=== PATIENT | male | born 1945 | race Caucasian/White ===

== ENCOUNTER → 2018-11-21 10:34 | Outpatient (CLI) | payer MEDICARE, OTHER, SELFPAY ==
[2018-11-21 11:49] LABS: Add Manual Diff / Slide Review NO; Basophils Absolute Auto 0 /uL (0-100); Basophils Percent Auto 0.4 % (0-2); Eosinophils Absolute Auto 100 /uL (0-450); Eosinophils Percent Auto 2.9 % (2-4); Hematocrit 46.2 % (41-53); Hemoglobin 15.4 g/dL (13.5-17.5); Lymphocytes Absolute Auto 900 /uL (1100-4500); Lymphocytes Percent Auto 17.3 % (25-40); Mean Corpuscular HGB Conc 33.4 % (30-36); Mean Corpuscular Hemoglobin 33.7 PG (26-34); Monocytes Absolute Auto 700 /uL (0-900); Neutrophils Absolute Auto 3400 /uL (1500-7000); Neutrophils Percent Auto 66.4 % (50-75); Platelet Count 166 X10^3/uL (150-400); Red Blood Cell Count 4.57 X10^6/uL (4.5-5.9); Red Cell Distribution Width 14.3 % (11.6-14.8); White Blood Cell Count 5.1 X10^3/uL (4.5-11.0)
[2018-11-21 12:32] LABS: Alanine Aminotransferase 42 IU/L (21-72); Albumin 4.5 g/dL (3.5-5.0); Albumin Globulin Ratio 1.5 (1.0-2.8); Alkaline Phosphatase 71 U/L (38-126); Aspartate Aminotransferase 43 IU/L (17-59); Bilirubin Total 0.8 mg/dL (0.2-1.3); Blood Urea Nitrogen 14 mg/dL (9-20); Calcium 9.2 mg/dL (8.4-10.2); Carbon Dioxide 31 mmol/L (22-32); Chloride 98 mmol/L (98-107); Estimated Glomerular Filt Rate > 60.0 mL/min (>60); Glucose 99 mg/dL (80-110); HEMOLYSIS < 15 (0-50); Potassium 4.4 mmol/L (3.4-5.1); Sodium 139 mmol/L (137-145); Total Protein 7.5 g/dL (6.3-8.2)
[2018-11-21 14:27] LABS: B Type Natriuretic Peptide < 100 (<100)
== END ==
PROVIDERS: Family Provider Family Medicine; PCP Family Medicine; Visit Provider Family Medicine
DX: R60.9 Edema, unspecified (principal); I48.91 Unspecified atrial fibrillation; R06.02 Shortness of breath; J44.9 Chronic obstructive pulmonary disease, unspecified
CPT/HCPCS: 36415; 80053; 83880; 85025

== ENCOUNTER → 2018-11-23 08:05 | Outpatient (CLI) | payer MEDICARE, OTHER, SELFPAY ==
--- NOTE | 2018-11-23 | DI.ECHO.S_ITS ---
[facility] +---------+ : : [address] [place] [address] : : : : [id number] : : : : Phone: [phone]+ Echocardiogram Report + + :Name: CATRACHITO PERAZA Study Date: 11/23/2018 Height: 71 in : :[facility] Exam Location: [place] Weight: 213 lb : : Gender: Male BSA: 2.2 m2 : :: 1945 Age: 73 yrs BP: 140/80 mmHg: :Reason For Study: Atrial fibrillation/ Edema : :Ordering Physician: Dr. Kate : :[place] Performed By: Milagros Page : + + Interpretation Summary The left ventricle is normal in size. The ejection fraction is estimated to be 60-65%. The right ventricle is mild to moderately dilated. Visually RV function appears to be mildly reduced. No significant valvular pathology seen. The ascending aorta is mildly enlarged. Mild proximal pulmonary artery dilation. The IVC is of normal diameter and collapses greater than 50% with a sniff. This suggests a low right atrial pressure of 3 mm Hg. Pulmonary artery pressures cannot be estimated because of the lack of a measurable TR jet velocity however Doppler profile across the pulmonary valve suggest pulmonary hypertension. Procedure: A two-dimensional transthoracic echocardiogram with color flow and Doppler was performed. The study quality was technically adequate. There is no prior echocardiogram noted for this patient. The patient was in normal sinus rhythm during the exam. Left Ventricle: The left ventricle is normal in size. There is normal left ventricular wall thickness. The ejection fraction is estimated to be 60-65%. There are no obvious focal wall motion abnormalities noted but poor endocardial definition reduces the sensitivity for the detection of such. Diastolic parameters suggest probable normal left ventricular diastolic function and normal filling pressures. Right Ventricle: The right ventricle is mild to moderately dilated. Visually RV function appears to be mildly reduced. Atria: The left atrial size is normal. The right atrium is mildly dilated. There is no Doppler evidence for an interatrial shunt. Mitral Valve: The mitral valve is normal. There is trace mitral regurgitation. Aortic Valve: The aortic valve is not well visualized. There is no hemodynamically significant valvular aortic stenosis. No aortic regurgitation is present. Tricuspid Valve: The tricuspid valve is not well visualized, but is grossly normal. Pulmonary artery pressures cannot be estimated because of the lack of a measurable TR jet velocity. There is trace tricuspid regurgitation. Pulmonic Valve: The pulmonic valve is not well visualized. There is trace pulmonic regurgitation. Great Vessels: The aortic root is normal size. The ascending aorta is mildly enlarged. Mild pulmonary artery dilation. The IVC is of normal diameter and collapses greater than 50% with a sniff. This suggests a low right atrial pressure of 3 mm Hg. Pericardium/ Pleura There is no pericardial effusion. There is no pleural effusion. MMode/2D Measurements & Calculations LVIDd: 4.3 cm LVOT diam: 2.0 cm LVIDs: 2.9 cm Ao root diam: 3.6 cm FS: 32.1 % asc Aorta Diam: 3.5 cm IVSd: 1.0 cm LVPWd: 0.61 cm LV stewart. diameter/BSA (cm/m^2): 2.0 LV sys. diameter/BSA (cm/m^2): 1.3 LA A2 area: 14.8 cm2 RA long axis: 6.3 cm LA A4 area: 24.4 cm2 RA area: 24.5 cm2 LA length (vol): 5.9 cm RA vol: 80.3 ml LA vol: 51.7 ml RA : 37.1 ml/m2 LA vol index: 23.8 ml/m2 IVC diam: 2.0 cm RVD1 (basal): 5.1 cm TAPSE: 2.4 cm Doppler Measurements & Calculations Ao V2 max: 115.4 cm/sec LVOT Max Yevgeniy: 88.6 cm/sec Ao V2 mean: 80.2 cm/sec LV V1 max P.1 mmHg Ao max P.3 mmHg LV V1 VTI: 15.7 cm Ao mean P.8 mmHg MAIDA(I,D): 2.5 cm2 Ao V2 VTI: 19.1 cm MAIDA(V,D): 2.4 cm2 sev ratio: 0.82 MAIDA indexed to BSA (cm^2/m^2): 1.2 MV E max yevgeniy: 67.6 cm/sec PA V2 max: 68.9 cm/sec MV A max yevgeniy: 75.5 cm/sec PA V2 mean: 46.6 cm/sec MV E/A: 0.90 PA mean P.97 mmHg Med Peak E' Yevgeniy: 9.4 cm/sec PA Accel Time: 0.02 sec E/E' med: 7.2 Lat Peak E' Yevgeniy: 12.5 cm/sec E/E' lat: 5.4 E/e' average: 6.3 MV dec time: 0.16 sec MV P1/2t: 46.1 msec MV P1/2t max yevgeniy: 68.0 cm/sec SV(LVOT): 48.3 ml MVA(P1/2t): 4.8 cm2 Reading Physician:CHRIS
== END ==
PROVIDERS: Family Provider Family Medicine; PCP Family Medicine; Visit Provider Family Medicine
DX: I48.91 Unspecified atrial fibrillation (principal); R06.00 Dyspnea, unspecified; R60.9 Edema, unspecified
CPT/HCPCS: 93306

== ENCOUNTER → 2018-11-25 12:23 | Outpatient (CLI) | payer MEDICARE, OTHER, SELFPAY ==
--- NOTE | 2018-11-25 | DI.RAD.S_ITS ---
PROCEDURE: XR CHEST 2V INDICATIONS: COPD/DYSPNEA/DIAPHRAGMATIC DISORDER TECHNIQUE: 2 views of the chest were acquired. COMPARISON: [facility], , CHEST 1 VIEW, 03/28/2016, 11:57. FINDINGS: Surgical changes and devices: None. Lungs and pleura: No definite interval change in presumed atelectasis/scarring involving the left lung base although evaluation limited by skeletal deformity/scoliosis. No pleural effusions or pneumothorax. Mediastinum: Mediastinal contours are normal. Heart size is normal. Bones and chest wall: Severe scoliosis as before. Screw projects within the glenoid as before IMPRESSION: Overall, no definite interval change. Limited evaluation of the left lung base due to severe scoliosis. No definite new focal consolidation since 03/28/16. Dictated by: Ebenezer Sanchez M.D. on 11/25/2018 at 13:10 Approved by: Ebenezer Sanchez M.D. on 11/25/2018 at 13:13
== END ==
PROVIDERS: Family Provider Family Medicine; PCP Family Medicine; Visit Provider Family Medicine
DX: R06.00 Dyspnea, unspecified (principal); J44.9 Chronic obstructive pulmonary disease, unspecified; J98.6 Disorders of diaphragm; M41.9 Scoliosis, unspecified
CPT/HCPCS: 71046

== ENCOUNTER → 2018-12-08 08:42 | Outpatient (CLI) | payer MEDICARE, OTHER, SELFPAY ==
[2018-12-08 10:37] LABS: PCO2 ABG 49.2 mmHg (35-45); pH ABG 7.38 (7.35-7.45)
[2018-12-08 10:38] LABS: HCO3 ABG 29 mmol/L (22-26); Oxygen Saturation ABG 91 % (95-100); PO2 ABG 63 mmHg (80-100); TCO2 ABG 31 mmol/L (21-31)
[2018-12-08 10:40] LABS: Fractionated Inspired Oxygen 0.21
--- NOTE | 2018-12-11 12:52 | PM.PFT.1 ---
Pulmonary Function Test Referral & Results Date Patient Seen: 12/08/18 Requesting provider: Humble Coronel Indication: COPD Results: The spirometry demonstrates an FVC of 1.58 L which is 34% of predicted. The FEV1 was measured at 1.09 L which is 32% of predicted. The FEV1/FVC ratio was 69 which is 94% of predicted. Following the administration of bronchodilator there was a 25% improvement in FEF 25-75%. Lung volumes show an SVC of 2.15 L which is 44% of predicted. The diffusing capacity was measured at 16.89 which is 48% of predicted. No hemoglobin value was provided, so no correction for potential anemia could be made, if appropriate. The maximum voluntary ventilation was reduced Interpretation: This study demonstrates severe obstructive lung disease with only limited evidence of benefit following bronchodilator, particularly noticed in small airway flow based on improvement in FEF 25-75% There is also moderately severe reduction lung volumes suggesting moderately severe restrictive lung disease There is also moderately severe reduction in diffusing capacity suggesting significant disease at the capillary alveolar level Compared to PFTs performed in June 2017, current study shows decline in FEV1, SVC and diffusing capacity Clinical correlation suggested
== END ==
PROVIDERS: Family Provider Family Medicine; PCP Family Medicine; Visit Provider Family Medicine
DX: J44.9 Chronic obstructive pulmonary disease, unspecified (principal); R06.00 Dyspnea, unspecified; J98.6 Disorders of diaphragm
CPT/HCPCS: 36600; 82805; 94060; 94726; 94729

== ENCOUNTER → 2019-02-06 12:48 | Outpatient (CLI) | payer MEDICARE, OTHER, SELFPAY ==
--- NOTE | 2019-02-06 | DI.CT.S_ITS ---
PROCEDURE: CT SINUS SCREEN WO CON INDICATIONS: specified disorders of nose and nasal sinuses TECHNIQUE: Noncontrast 3.0 mm axial images acquired from the frontal sinuses to the mid-sella, with coronal and sagittal reformats. For radiation dose reduction, the following was used: automated exposure control, adjustment of mA and/or kV according to patient size. COMPARISON: None. FINDINGS: Image quality: Diagnostic. Maxillary Sinuses: No bony remodeling or destruction. Sinuses are clear. Ethmoid Air Cells: No bony remodeling or destruction. Sinuses are clear. Sphenoid Sinuses: No bony remodeling or destruction. Sinuses are clear. Frontal Sinuses: No bony remodeling or destruction. Sinuses are clear. Ostiomeatal Complexes: Ostiomeatal complexes are patent. No Lucy cells. Miscellaneous: Visualized intra-orbital contents are normal. No pat bullosa or paradoxical turbinate curvature. No nasal septal deviation. Intracranial internal artery atherosclerotic changes are evident. IMPRESSION: No evidence of sinus or mastoid disease. Dictated by: Laureano De La Rosa M.D. on 02/06/2019 at 12:42 Approved by: Laureano De La Rosa M.D. on 02/06/2019 at 12:47
== END ==
PROVIDERS: Family Provider Family Medicine; PCP Family Medicine; Visit Provider Otolaryngology
DX: J32.8 Other chronic sinusitis (principal); J34.89 Other specified disorders of nose and nasal sinuses
CPT/HCPCS: 70486

== ENCOUNTER → 2019-04-24 10:29 | Outpatient (CLI) | payer MEDICARE, OTHER, SELFPAY ==
--- NOTE | 2019-04-24 | DI.RAD.S_ITS ---
PROCEDURE: XR SHOULDER LT MIN 2V INDICATIONS: LEFT SHOULDER PAIN TECHNIQUE: 3 views of the shoulder were acquired. COMPARISON: [facility], CT, CHEST/ABD/PEL WITH CONTRAST, 05/19/2017, 9:36. FINDINGS: Bones: No fractures or dislocations. No suspicious bony lesions. Visualized ribs appear intact. 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 Soft tissues: No suspicious soft tissue calcifications. IMPRESSION: No acute trauma found. Prior surgical fixation screw overlies the glenohumeral joint inferiorly. Degenerative osteoarthritis is quite severe at the shoulder joint, to the degree that the near [id number] articulation appears present. Dictated by: Carlyle Harris M.D. on 04/24/2019 at 13:49 Approved by: Carlyle Harris M.D. on 04/24/2019 at 13:50
== END ==
PROVIDERS: PCP Family Medicine; Visit Provider Family Medicine
DX: M25.512 Pain in left shoulder (principal); M19.012 Primary osteoarthritis, left shoulder
CPT/HCPCS: 73030

== ENCOUNTER → 2019-12-08 10:42 | Outpatient (CLI) | payer MEDICARE, OTHER, SELFPAY ==
--- NOTE | 2019-12-15 16:31 | P.PFT.S_ITS ---
Pulmonary Function Test Referral & Results Date Patient Seen: 12/08/19 Requesting provider: Bhargav Phan Results: The spirometry demonstrates an FVC of 1.69 L which is 37% of predicted. The FEV1 was measured at 1.26 L which is 38% of predicted. The FEV1/FVC ratio was 75 which is 102% of predicted. Following the administration of bronchodilator there was 12% improvement in FEV1 and a 53% improvement in FEF 25-75%. Lung volumes show an SVC of 1.91 L which is 40% of predicted. The diffusing capacity was measured at 15.03 which is 42% of predicted. No hemoglobin value was provided, so no correction for potential anemia could be made, if appropriate. The maximum voluntary ventilation was reduced Interpretation: This study demonstrates moderately severe obstructive lung disease with some limited evidence of benefit following bronchodilator particularly small airway flow based on improvement in FEF 25-75% There is also moderately severe restrictive lung disease present based on reduct ion SVC There is also significant reduction in diffusing capacity suggesting significant disease at the capillary alveolar level Compared to PFTs performed in November 2018, current study shows very slight improvement in FEV1 but otherwise is essentially unchanged
== END ==
PROVIDERS: PCP Family Medicine; Referring Provider Internal Medicine; Visit Provider Internal Medicine
DX: I27.21 Secondary pulmonary arterial hypertension (principal)
CPT/HCPCS: 94060; 94726; 94729

== ENCOUNTER 2021-06-01 21:26 | Observation (INO) | payer MEDICARE, OTHER, SELFPAY ==
[2021-06-01] VITALS (8 sets, daily range): BP systolic 158–248; BP diastolic 77–116; PULSE 65–80; RESP 23–31; TEMP 36.7; O2SAT 91–98; BMI 28.7
--- NOTE | 2021-06-01 21:36 | DI.CT.S_ITS ---
PROCEDURE: CT ANGIO HEAD AND NECK INDICATIONS: left sided weakness TECHNIQUE: After the administration of intravenous contrast, 1 mm thick sections acquired from the aortic arch through the [place] of [place]. Post-contrast 4.5 mm thick sections then re-acquired from the foramen magnum to the vertex. 3-dimensional anpyqri-caebayntn-nrxykfqsri (MIP) and/or volume rendering reformats were acquired of the central intracranial vasculature and neck separately. COMPARISON: None. FINDINGS: Cerebral CT Angiogram: Internal carotid arteries: Calcified arthritic plaque in both62 cavernous ICA results in mild bilateral stenosis. No occlusion or aneurysm. Anterior cerebral arteries: Unremarkable. No significant stenosis. No occlusion. No aneurysm. Middle cerebral arteries: Unremarkable. No significant stenosis. No occlusion. No aneurysm. 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 The P2 segment is supplied by a widely patent posterior communicating artery. Remainder of the distal vasculature unremarkable. Left CURRICULUM COUNSELOR unremarkable. Basilar artery: Unremarkable. No significant stenosis. No occlusion. No aneurysm. Vertebral arteries: Unremarkable as visualized. Dural venous sinuses: Unremarkable given phase of enhancement. Other: Arterial phase brain parenchyma is unremarkable. Neck CT Angiogram: Internal carotid arteries: Calcified and noncalcified atherosclerotic plaque in the proximal left ICA results in a greater than 80 percent stenosis utilizing NASCET criteria. Right proximal ICA unremarkable. Common carotid arteries: Atherosclerotic plaque at the origin of the left CCA results in mild stenosis. Right cc unremarkable. External carotid arteries: Unremarkable. No occlusion. Vertebral arteries: Unremarkable. No significant stenosis. No dissection or occlusion. Other: None. Aortic Arch and Mediastinum: Partially imaged left lower lobe segmental pulmonary embolism noted associated with basilar atelectasis. IMPRESSION: 1. No intracranial large vessel occlusion, aneurysm or vascular malformation. 2. Atherosclerotic plaque results in greater than 80 percent left proximal ICA stenosis. 3. Incidental left lower lobe pulmonary embolism and associated left lower lobe consolidation is partially imaged. Any quantitative measurements of stenosis were performed using NASCET criteria. Note: Critical results were discussed with Dr. William at 09:22 PM [place] time on 06/01/21 Approved by: Reinaldo Toledo M.D. on 06/01/2021 at 21:24
--- NOTE | 2021-06-01 21:36 | DI.CT.S_ITS ---
PROCEDURE: CT STROKE INDICATIONS: left sided weakness TECHNIQUE: Noncontrast 4.5 mm thick angled axial sections acquired from the foramen magnum to the vertex, with coronal reformats. For radiation dose reduction, the following was used: automated exposure control, adjustment of mA and/or kV according to patient size. COMPARISON: None. FINDINGS: Image quality: Excellent. CSF spaces: Basal cisterns are patent. No extra-axial fluid collections. The ventricles are symmetric in size and shape. Brain: No intracranial bleeds or masses. There is cerebral volume loss for age, with resultant ventricular and sulcal prominence. There are periventricular and deep white matter chronic small vessel ischemic changes. There is intracranial internal carotid artery atherosclerosis. Skull and face: Calvarium and visualized facial bones appear intact, without suspicious lesions. Sinuses: Visualized sinuses and mastoids are clear. IMPRESSION: No acute intracranial process. Findings (including all critical results) and recommendations were personally telephoned and discussed with Dr. William on 06-01-21 21:56 This study fulfills neurological imaging criteria for inclusion or exclusion of acute stroke therapies based on available published neurological guidelines. Dictated by: Ebenezer Sanchez M.D. on 06/01/2021 at 21:55 Approved by: Ebenezer Sanchez M.D. on 06/01/2021 at 21:57
--- NOTE | 2021-06-01 21:43 | ED_ITS ---
HPI - Neuro Symptoms/Deficit General Chief Complaint: Neuro Symptoms/Deficit Stated Complaint: LEFT SIDE NUMBNESS Time Seen by Provider: 06/01/21 21:35 Source: patient Mode of arrival: Ambulatory Limitations: no limitations History of Present Illness HPI Narrative: Patient is a 75-year-old male with history of atrial fibrillation on flecainide whose last known well is 830pm presenting today as acute stroke. He states he was brushing his teeth when he noticed that his left fingers were numb. He immediately when out and told his . Then started noticing that his left leg and face were numb as well at which point they came to the emergency department. Nursing noted that when he was ambulating he had some mild left leg weakness as well. He has no speech difficulty or vision difficulty. The patient and state that they drove to [place] last week. He thought he was having some multitude of issues he was a little dizzy lightheaded fell and hit his head. He did not lose consciousness. His nephew who is a family practice physician wanted take him in and work him up however he thought he just needed to get out of the altitude. Since then he has been feeling fine. He has chronic ongoing pulmonary issues hand he has a elevated hemidiaphragm he says as well. He has no new worsening shortness of breath no chest pain or palpitations. His numbness is slowly improving. Broke down [place] last week was feeling dizzy lightheaded he fell 1 week ago hitting his head. He thought symptoms were due to altitude they drove back to [place] and he instantly felt better On Anticoagulants: No Related Data Home Medications Medication Instructions Recorded Confirmed ascorbic acid (vitamin C) 250 mg 250 mg PO DAILY 06/02/21 06/02/21 tablet aspirin 325 mg tablet 325 mg PO DAILY 06/02/21 06/02/21 azelastine 137 mcg (0.1 %) nasal 2 spray INTRANASAL BID 06/02/21 06/02/21 spray aerosol betamethasone valerate 0.1 % 1 applic TOPICAL DAILY PRN 06/02/21 06/02/21 topical cream calcium citrate 500 mg PO DAILY 06/02/21 06/02/21 flecainide 50 mg tablet 50 mg PO Q12H 06/02/21 06/02/21 fluticasone propionate 50 1 spray INTRANASAL DAILY 06/02/21 06/02/21 mcg/actuation nasal spray,suspension furosemide 20 mg tablet 20 mg PO DAILY 06/02/21 06/02/21 levalbuterol tartrate 45 2 puff INHALATION Q4-6H PRN 06/02/21 06/02/21 mcg/actuation aerosol inhaler (Xopenex HFA) multivitamin 1 tab PO DAILY 06/02/21 06/02/21 omeprazole 20 mg capsule,delayed 20 mg PO BID 06/02/21 06/02/21 release sildenafil 25 mg tablet See Rx Instructions .ROUTE 06/02/21 06/02/21 .COMPLEX PRN tamsulosin 0.4 mg capsule 0.4 mg PO DAILY 06/02/21 06/02/21 vitamin B complex 1 tab PO DAILY 06/02/21 06/02/21 Allergies Allergy/AdvReac Type Severity Reaction Status Date / Time No Known Drug Allergies Allergy Verified 06/01/21 21:40 Review of Systems Review of Systems Narrative: GENERAL: Denies chills, fatigue, malaise, fever, sweats, travel HEENT: Denies sinus pain, ear pain, sore throat, difficulty swallowing, neck pain RESPIRATORY: Denies dyspnea, cough, wheezing, hemoptysis, sputum. CARDIOVASCULAR: Denies chest pain, palpitations, orthopnea, edema GASTROINTESTINAL: Denies nausea, vomiting, abdominal pain, diarrhea, constipation, melena. : Denies dysuria, frequency, incontinence, hematuria, urinary retention, flank pain. MUSCULOSKELETAL: Denies weakness, joint pain, or bony pain SKIN: No rash, no erythema, no pruritus NEUROLOGIC: See HPI PSYCHIATRIC: No concerning psychosocial issues. 12 point review of systems is negative except for those stated above and HPI Hematologic/Lymphatic On Anticoagulants: No Patient History Medical History (Updated 06/02/21 @ 04:02 by Genia William DO) Atrial fibrillation with controlled ventricular rate COPD (chronic obstructive pulmonary disease) Pulmonary hypertension Social History household members: spouse Smoking Status: Never smoker alcohol intake: current Smoking Status: Unknown if ever smoked alcohol intake frequency: holidays/special occasions only Substance Use Type: does not use Exam Initial Vital Signs Initial Vital Signs: Vital Signs Temperature 98.0 F 06/01/21 21:28 Pulse Rate 76 06/01/21 21:28 Respiratory Rate 28 H 06/01/21 21:28 Blood Pressure 248/116 H 06/01/21 21:28 Pulse Oximetry 93 06/01/21 21:28 GENERAL: Alert well-appearing 85-year-old male HEENT: Head atraumatic,EOMI, pupils reactive, face symmetric, moist mucous membranes CARDIOVASCULAR: Regular rate and rhythm without murmurs, rubs or gallops. RESPIRATORY: Breath sounds equal bilaterally, no wheezes rales or rhonchi. ABDOMEN: Soft, nontender. Normoactive bowel sounds all 4 quadrants. No guarding or rebound. EXTREMITIES: Normal range of motion, no clubbing. Bilateral lower extremity edema compression socks are on. Neurovascularly intact NEUROLOGICAL: Alert and oriented x4. No aphasia or dysarthria mild left leg drift no ataxia of sensation is slightly altered in left leg and arm, face is symmetric SKIN: Warm, dry, no laceration, no petechiae, no rashes or lesions. Scores NIH Stroke Scale Level of Conciousness: Alert, keenly responsive Ask month/age: Answers both questions correctly. Open/close eyes, close hand: Performs both tasks correctly Best gaze horizontal: Normal Visual marquez: No visual loss Facial palsy: Normal symetrical movement Left arm drift: No drift for full 10 sec Right arm drift: No drift for full 10 sec Left leg drift: Drifts down, not to bed Right leg drift: No drift for full 5 sec Limb ataxia: Absent Sensory on face/arms/legs: Mild to moderate sensory loss, can tell touch Best language: No aphasia, normal Dysarthria: Normal Extinction or inattention: No abnormality Total NIH Stroke scale score: 2 Course Orders Ordered: ED Orders 06/01/21 21:[address] angio head and neck Stat Urine Drug Screen, Rapid Stat EKG-12 Lead Stat 06/01/21 21:37 Complete Blood Count AUTO DIFF Stat Comprehensive Metabolic Panel Stat Partial Thromboplastin Time Stat Prothrombin Time INR Stat Troponin & CK Cardiac Panel Stat 06/01/21 22:17 COVID19 - ADMIT (ROLL BUILDER swab/PCR) Stat Acetaminophen (Acetaminophen 325 Mg Tablet) 650 mg PO Q6HR PRN PRN Reason: Fever/Mild Pain (1-3) Al Hydrox/Mg Hydrox/Simethicone (Mag Hydrox/Alum/Simeth 30 Ml Udc) 30 ml PO Q6HR PRN PRN Reason: Dyspepsia Aspirin (Aspirin Ec 81 Mg Tablet) 81 mg PO DAILY [place] Atorvastatin Calcium (Atorvastatin 20 Mg Tablet) 80 mg PO BEDTIME [facility] Sodium Chloride (Normal Saline 0.9%) 1,000 mls @ 150 mls/hr IV CONT [place] Last Infusion: 06/02/21 02:05 Dose: 0 mls/hr Documented by: Admin: 06/01/21 22:44 Dose: 150 mls/hr Documented by: JESSICA Magnesium Hydroxide (Magnesium Hydroxide 30 Ml Udc) 30 ml PO DAILY PRN PRN Reason: Constipation Naloxone HCl (Naloxone 0.4 Mg/Ml Vial) 0.2 mg IV Q2MIN PRN PRN Reason: Opiate Reversal Ondansetron HCl (Ondansetron 4 Mg/2 Ml Inj) 4 mg IV Q8HR PRN PRN Reason: Nausea And Vomiting Discontinued Medications Clopidogrel Bisulfate (Clopidogrel 75 Mg Tablet) 75 mg PO DAILY [facility] Vital Signs Vital signs: Vital Signs - 8 hr 06/01/21 21:28 06/01/21 21:36 06/01/21 21:53 Temperature 98.0 F Pulse Rate 76 80 72 Respiratory Rate 28 H 26 H Blood Pressure 248/116 H 199/102 H Pulse Oximetry 93 93 93 06/01/21 22:00 06/01/21 22:15 06/01/21 22:30 Temperature Pulse Rate 74 65 65 Respiratory Rate 31 H 23 24 Blood Pressure 183/90 H 176/86 H Pulse Oximetry 94 91 06/01/21 23:00 06/01/21 23:30 Temperature Pulse Rate 67 67 Respiratory Rate 29 H 26 H Blood Pressure 175/82 H 158/77 H Pulse Oximetry 91 98 MDM - Neuro Symptoms/Deficit Lab Data Result diagrams: 06/01/21 21:37 06/01/21 21:37 Labs: Lab Results 06/01/21 06/01/21 06/01/21 Range/Units 21:37 21:37 21:37 WBC 4.6 (4.5-11.0) X10^3/uL RBC 4.50 (4.5-5.9) X10^6/uL Hgb 14.7 (13.5-17.5) g/dL Hct 44.9 (41-53) % MCV 99.8 (80-100) fL MCH 32.6 (26-34) PG MCHC 32.6 (30-36) % RDW 13.4 (11.6-14.8) % Plt Count 195 (150-400) X10^3/uL Neut % (Auto) 50.5 (50-75) % Lymph % (Auto) 34.1 (25-40) % [place] % (Auto) 12.7 (3-14) % Eos % (Auto) 2.1 (2-4) % Baso % (Auto) 0.6 (0-2) % Neut # (Auto) 2300 (2510-3374) /uL Lymph # (Auto) 1600 (3130-3007) /uL [place] # (Auto) 600 (0-900) /uL Eos # (Auto) 100 (0-450) /uL Baso # (Auto) 0 (0-100) /uL PT 12.4 (10.1-12.7) SECONDS INR 1.1 (0.9-1.3) APTT 30 (26.4-36.2) SECONDS Sodium 141 (137-145) mmol/L Potassium 4.6 (3.4-5.1) mmol/L Chloride 103 (98-107) mmol/L Carbon Dioxide 32 (22-32) mmol/L BUN 12 (9-20) mg/dL Creatinine 0.67 (0.66-1.25) mg/dL Estimated GFR > 60.0 (>60) mL/min BUN/Creatinine Ratio 17.9 (6-22) Glucose 98 (80-110) mg/dL Calcium 9.2 (8.4-10.2) mg/dL Total Bilirubin 0.4 (0.2-1.3) mg/dL AST 42 (17-59) IU/L ALT 26 (<50) IU/L Alkaline Phosphatase 63 (38-126) U/L Total Creatine Kinase 139 (55-170) U/L CK-MB (CK-2) 1.34 (<2.37) ng/mL CK-MB (CK-2) Rel Index 1.0 L (1.5-5.0) % Troponin I < 0.012 (0.01-0.034) ng/mL Total Protein 7.3 (6.3-8.2) g/dL Albumin 4.4 (3.5-5.0) g/dL Globulin 2.9 (1.7-4.1) g/dL Albumin/Globulin Ratio 1.5 (1.0-2.8) TSH (0.47-4.68) uIU/mL SARS-CoV-2 (PCR) (Negative) 06/01/21 06/01/21 Range/Units 21:37 22:17 WBC (4.5-11.0) X10^3/uL RBC (4.5-5.9) X10^6/uL Hgb (13.5-17.5) g/dL Hct (41-53) % MCV (80-100) fL MCH (26-34) PG MCHC (30-36) % RDW (11.6-14.8) % Plt Count (150-400) X10^3/uL Neut % (Auto) (50-75) % Lymph % (Auto) (25-40) % [place] % (Auto) (3-14) % Eos % (Auto) (2-4) % Baso % (Auto) (0-2) % Neut # (Auto) (7680-4212) /uL Lymph # (Auto) (2576-9524) /uL [place] # (Auto) (0-900) /uL Eos # (Auto) (0-450) /uL Baso # (Auto) (0-100) /uL PT (10.1-12.7) SECONDS INR (0.9-1.3) APTT (26.4-36.2) SECONDS Sodium (137-145) mmol/L Potassium (3.4-5.1) mmol/L Chloride (98-107) mmol/L Carbon Dioxide (22-32) mmol/L BUN (9-20) mg/dL Creatinine (0.66-1.25) mg/dL Estimated GFR (>60) mL/min BUN/Creatinine Ratio (6-22) Glucose (80-110) mg/dL Calcium (8.4-10.2) mg/dL Total Bilirubin (0.2-1.3) mg/dL AST (17-59) IU/L ALT (<50) IU/L Alkaline Phosphatase (38-126) U/L Total Creatine Kinase (55-170) U/L CK-MB (CK-2) (<2.37) ng/mL CK-MB (CK-2) Rel Index (1.5-5.0) % Troponin I (0.01-0.034) ng/mL Total Protein (6.3-8.2) g/dL Albumin (3.5-5.0) g/dL Globulin (1.7-4.1) g/dL Albumin/Globulin Ratio (1.0-2.8) TSH 1.50 (0.47-4.68) uIU/mL SARS-CoV-2 (PCR) Negative (Negative) Imaging Data CT scan - head: Radiologist's Impression: PROCEDURE: CT STROKE INDICATIONS: left sided weakness TECHNIQUE: Noncontrast 4.5 mm thick angled axial sections acquired from the foramen magnum to the vertex, with coronal reformats. For radiation dose reduction, the following was used: automated exposure control, adjustment of mA and/or kV according to patient size. COMPARISON: None. FINDINGS: Image quality: Excellent. CSF spaces: Basal cisterns are patent. No extra-axial fluid collections. The ventricles are symmetric in size and shape. Brain: No intracranial bleeds or masses. There is cerebral volume loss for age, with resultant ventricular and sulcal prominence. There are periventricular and deep white matter chronic small vessel ischemic changes. There is intracranial internal carotid artery atherosclerosis. Skull and face: Calvarium and visualized facial bones appear intact, without suspicious lesions. Sinuses: Visualized sinuses and mastoids are clear. IMPRESSION: No acute intracranial process. Findings (including all critical results) and recommendations were personally telephoned and discussed with Dr. William on 06-01-21 21:56 This study fulfills neurological imaging criteria for inclusion or exclusion of acute stroke therapies based on available published neurological guidelines. Dictated by: Ebenezer Sanchez M.D. on 06/01/2021 at 21:55 CTA - brain/neck: Radiologist's Impression: PROCEDURE: CT ANGIO HEAD AND NECK INDICATIONS: left sided weakness TECHNIQUE: After the administration of intravenous contrast, 1 mm thick sections acquired from the aortic arch through the [place] of [place]. Post-contrast 4.5 mm thick sections then re-acquired from the foramen magnum to the vertex. 3-dimensional qkpbtnc-daemjacgj-lcrakeapzy (MIP) and/or volume rendering reformats were acquired of the central intracranial vasculature and neck separately. COMPARISON: None. FINDINGS: Cerebral CT Angiogram: Internal carotid arteries: Calcified arthritic plaque in both62 cavernous ICA results in mild bilateral stenosis. No occlusion or aneurysm. Anterior cerebral arteries: Unremarkable. No significant stenosis. No occlusion. No aneurysm. Middle cerebral arteries: Unremarkable. No significant stenosis. No occlusion. No aneurysm. Posterior cerebral arteries: Hypoplasia/aplasia of the right P1 [employer] OPERATOR noted. The P2 segment is supplied by a widely patent posterior communicating artery. Remainder of the distal vasculature unremarkable. Left [employer] PANELBOARD OPERATOR unremarkable. Basilar artery: Unremarkable. No significant stenosis. No occlusion. No aneurysm. Vertebral arteries: Unremarkable as visualized. Dural venous sinuses: Unremarkable given phase of enhancement. Other: Arterial phase brain parenchyma is unremarkable. Neck CT Angiogram: Internal carotid arteries: Calcified and noncalcified atherosclerotic plaque in the proximal left ICA results in a greater than 80 percent stenosis utilizing NASCET criteria. Right proximal ICA unremarkable. Common carotid arteries: Atherosclerotic plaque at the origin of the left CCA results in mild stenosis. Right cc unremarkable. External carotid arteries: Unremarkable. No occlusion. Vertebral arteries: Unremarkable. No significant stenosis. No dissection or occlusion. Other: None. Aortic Arch and Mediastinum: Partially imaged left lower lobe segmental pulmonary embolism noted associated with basilar atelectasis. IMPRESSION: 1. No intracranial large vessel occlusion, aneurysm or vascular malformation. 2. Atherosclerotic plaque results in greater than 80 percent left proximal ICA stenosis. 3. Incidental left lower lobe pulmonary embolism and associated left lower lobe consolidation is partially imaged. Any quantitative measurements of stenosis were performed using NASCET criteria. Note: Critical results were discussed with Dr. William at 09:22 PM [place] time on 06/01/21 Approved by: Reinaldo Toledo M.D. on 06/01/2021 at 21:24 ECG Data Interpretation: Normal sinus rhythm rate 71 OR interval 148 QRS 1 of QTC [address] changes no T-wave inversion MDM Narrative Medical decision making narrative: Patient came in as code stroke with left- sided numbness he was noted to have a mild left leg drift but did not hit the gurney. His NIH of 2. 21:52 Stroke team was immediately called I spoke with [facility] review CT and spoke with patient. Low NI, with minimal disability no longer a candidate for tPA. A CT angio did not show any large vessel occlusion help cover Radiology did show that there is a pulmonary embolism and left lower lobe. I believe this to be a new pulmonary embolism based on the fact that patient traveled and had dizzy/syncopal episode last week, this may be the cause of it. He however though is a symptomatic at this time. He is having no worsening shortness of breath or chest pain. A contacted Neurology back in regards to anticoagulation. Neurology recommended patient have MRI and then he can be fully anticoagulated. He said patient's pulmonary embolism does need to be treated. Initially spoke with Dr. Silvestre who is not on hospital call in is only on clinic call recommend we saw talk with Dr. Amanda. We spent 2 hours or more trying to get in touch with Dr. danielle hagan and fortunately is not answering his phone. Valeria Camargo is updated patient's symptoms in test results and will accept patient to the hospitalist team. Discharge Plan Departure Patient Disposition: Admitted As Inpatient Clinical Impression: Pulmonary embolism, CVA (cerebral vascular accident) Admit Date/Time: 06/01/21 23:34 Admit Provider: Valeria Camargo
[2021-06-01 21:53] LABS: Add Manual Diff / Slide Review NO; Basophils Absolute Auto 0 /uL (0-100); Basophils Percent Auto 0.6 % (0-2); Eosinophils Absolute Auto 100 /uL (0-450); Eosinophils Percent Auto 2.1 % (2-4); Hematocrit 44.9 % (41-53); Hemoglobin 14.7 g/dL (13.5-17.5); Lymphocytes Absolute Auto 1600 /uL (1100-4500); Lymphocytes Percent Auto 34.1 % (25-40); Mean Corpuscular HGB Conc 32.6 % (30-36); Mean Corpuscular Hemoglobin 32.6 PG (26-34); Mean Corpuscular Volume 99.8 fL (80-100); Monocytes Absolute Auto 600 /uL (0-900); Monocytes Percent Auto 12.7 % (3-14); Neutrophils Absolute Auto 2300 /uL (1500-7000); Neutrophils Percent Auto 50.5 % (50-75); Platelet Count 195 X10^3/uL (150-400); Red Cell Distribution Width 13.4 % (11.6-14.8); White Blood Cell Count 4.6 X10^3/uL (4.5-11.0)
[2021-06-01 22:01] LABS: Alanine Aminotransferase 26 IU/L (<50); Albumin 4.4 g/dL (3.5-5.0); Albumin Globulin Ratio 1.5 (1.0-2.8); Alkaline Phosphatase 63 U/L (38-126); Aspartate Aminotransferase 42 IU/L (17-59); BUN Creatinine Ratio 17.9 (6-22); Bilirubin Total 0.4 mg/dL (0.2-1.3); Blood Urea Nitrogen 12 mg/dL (9-20); Calcium 9.2 mg/dL (8.4-10.2); Carbon Dioxide 32 mmol/L (22-32); Chloride 103 mmol/L (98-107); Creatine Kinase 139 U/L (55-170); Estimated Glomerular Filt Rate > 60.0 mL/min (>60); Globulin 2.9 g/dL (1.7-4.1); Glucose 98 mg/dL (80-110); HEMOLYSIS 27 (0-50); Potassium 4.6 mmol/L (3.4-5.1); Sodium 141 mmol/L (137-145); Total Protein 7.3 g/dL (6.3-8.2)
[2021-06-01 22:11] LABS: Troponin I < 0.012 ng/mL (0.01-0.034)
[2021-06-01 22:23] LABS: INR 1.1 (0.9-1.3); Prothrombin Time 12.4 SECONDS (10.1-12.7)
[2021-06-01 22:26] LABS: PTT Partial Thromboplastin Tim 30 SECONDS (26.4-36.2)
[2021-06-01 22:31] LABS: Creatine Kinase MB 1.34 ng/mL (<2.37)
[2021-06-01] MEDS: SODIUM CHLORIDE 0.9% 1,000 ML 150 ML IV (22:44)
[2021-06-01 23:24] LABS: COVID19 - ADMIT (NP swab/PCR) Negative (Negative)
[2021-06-02] VITALS (15 sets, daily range): BP systolic 131–189; BP diastolic 51–102; PULSE 62–71; RESP 16–25; TEMP 36.4–36.6; O2SAT 93–98; BMI 29.3
--- NOTE | 2021-06-02 02:03 | DI.MRI.S_ITS ---
PROCEDURE: MR STROKE Pre- and post-contrast brain MRI, non-contrast brain MR angiogram, pre- and postcontrast neck MR angiogram INDICATIONS: Stroke R/O TECHNIQUE: Brain: Noncontrast axial T1 spin echo, axial T2 fast spin echo, sagittal and axial FLAIR, coronal T2 fast spin echo, axial gradient echo, axial diffusion and ADC through the brain. After the administration of contrast, axial 3D VIBE of the cranial vasculature and brain. Brain MRA: Non-contrast 3-D time of flight MR angiogram, with multiple rbvqiki-lxchfbwlh-bdhvqknzdp (MIP) reformats performed. Neck MRA: Axial and sagittal TruFISP through the neck. Coronal dynamic MR angiogram during administration of contrast in the arterial and venous phases, with 3-dimenstional zlyizik-ywfwrlqhr-guthrujcxg (MIP) reformats constructed from subtraction images. COMPARISON: [facility], CT, CT ANGIO HEAD AND NECK, 06/01/2021, 21:43. [facility], CT, CT STROKE, 06/01/2021, 21:40. FINDINGS: Image quality: This examination is limited by involuntary motion artifact. BRAIN: CSF spaces: Ventricles are normal in size and shape. Basal cisterns are patent. No extra-axial fluid collections. Brain: Within the right thalamus, there is a 6 mm focus of abnormal diffusion-weighted signal, as on series 20, image 67, with associated dark signal on the ADC map. At this site, there is mild developing T2 weighted signal seen. No intracranial bleeds or mass effects. Bolden-white matter interface is normal. Brainstem appears normal. Normal intravascular flow voids are present. No abnormal intracranial enhancement. Note is made of age-appropriate brain parenchymal volume loss and chronic small vessel ischemic changes. Skull and face: Calvarial marrow signal is normal. Orbits appear normal. Note is made of bilateral lens replacements. Sinuses: Sinuses and mastoids are clear. BRAIN MR ANGIOGRAM: Anterior circulation: Intracranial internal carotid arteries are normal in size and enhancement. There is a diminutive right A1 segment, with a corresponding robust left A1 segment. This is considered to be a normal developmental variant of the [place] of [place], of typically no clinical consequence. The flow within the paired anterior cerebral arteries is otherwise normal and symmetric. The flow within the middle cerebral arteries is normal and symmetric. The anterior communicating artery is seen. No stenoses, occlusions, or aneurysms. Posterior circulation: The distal right vertebral artery is within normal limits. The left V4 segment demonstrates approximately 50% narrowing. There is a normal appearing basilar artery. There is a prominent right posterior communicating artery seen, with an accompanying diminutive right P1 segment. This is attributed to a type origin of the right posterior cerebral artery, which is considered to be a normal developmental variant of typically no clinical consequence. The flow within the posterior cerebral arteries is normal and symmetric. No stenoses, occlusions, or aneurysms. NECK MR ANGIOGRAM: Carotids: Incidental note is made of a common origin of the right brachiocephalic artery and the left common carotid artery (bovine type arch). This is considered to be a developmental variant of no clinical consequence. The origins of the common carotid arteries appear patent. The calibers and courses of both common carotid arteries are normal. The bifurcation regions demonstrate atherosclerotic irregularity. There is approximately 80% narrowing seen involving the left proximal internal carotid artery. No hemodynamically significant stenosis can be seen involving the right proximal internal carotid artery. The more distal internal carotid arteries demonstrate normal course and caliber. Posterior circulation: The origins of the vertebral arteries are not well seen. Right approximately 50% narrowing is suspected each side. The more superior extracranial portions of both vertebral arteries demonstrate normal course and caliber. Miscellaneous: Subclavian arteries appear patent. Pre-contrast images through the neck show no soft tissue abnormalities. IMPRESSION: BRAIN MRI: There is a small focus of subacute infarction involving the right thalamus. No masses or abnormal enhancement can be seen. Note is made of age-appropriate brain parenchymal volume loss and chronic small vessel ischemic changes. BRAIN MR ANGIOGRAM: There is approximately 50% narrowing seen involving the left V4 segment. Ommgre-jh-Toslsz developmental anomalies are incidentally noted. NECK MR ANGIOGRAM: Approximately 80% narrowing seen involving the left proximal internal carotid artery. The origins of the vertebral arteries are not well seen. Approximately 50% narrowing on each side is suspected. Dictated by: Eduardo Salinas M.D. on 06/02/2021 at 10:50 Approved by: Eduardo Salinas M.D. on 06/02/2021 at 10:57
--- NOTE | 2021-06-02 02:15 | P.HP_ITS ---
History of Present Illness History of Present Illness Date Patient Seen: 06/02/21 Time Patient Seen: 02:15 Chief complaint: LEFT SIDE NUMBNESS Narrative: Lenin Atkins is a 75-year-old male whose last known well was 830pm, presented yesterday as acute stroke. He states he was brushing his teeth when he noticed that he developed weakness/tingling in his left fingers, followed by weakness in his left leg, finally resulting in left-sided facial weakness and droop that brought him into the ED. Patient with history of atrial fibrillation on flecainide, prostate cancer 999, GERD, and restrictive ventilatory disease. Patient denies chest pain, shortness of breath, abdominal pain, nausea, vomiting, fever, body aches, chills, and is alert and orientated x3. Patient also reported to the ED that he broke down in [place] last week was feeling dizzy lightheaded he fell hitting his head with a LOC x seconds. He thought his symptoms were due to altitude, they drove back to [place] and he instantly felt better, patient is on no anticoagulants for his atrial fibrillation. Upon admit to the floor patient states that his deficits have resolved and only senses some mild tingling in his left hand and left foot. Patient denies chest pain, new or worsening shortness of breath, abdominal pain, nausea, vomiting, headache, changes in vision, fever, body aches, chills, hematuria, melena, falls, difficulty with balance or coordination. Patient does note that on that that same trip to [place] a week ago during two nights he was incontinent of urine. The patient does note that he had prostate cancer 99 and prostatectomy. But is only suffered 1 other instance of incontinence several years ago. Patient reports that he was under a great deal of stress on his trip to [place]. Patient also reports that he has had is severe respiratory condition and has been labeled various different diagnosis. While examining patient in the room his increased work of breathing is visible and use accessory muscles which the patient reports as baseline. Patient previously had been on multiple inhalers and was recommended to no longer use them if he was receiving no benefit, patient is not on any respiratory medications at this time. Patient demonstrates no deficit upon exam, and the patient's verbalizes that his speech and meditation are baseline. Patient's vital signs upon admit temp 98?, BP slightly hypertensive 168/83, HR 67, R 19, O2 saturation 98%. Patient's CBC, CMP and lab work was all unremarkable, 1st troponin was within normal limits, patient had an NIH score: 2. I personally reviewed patient's EKG normal sinus rhythm with a ventricular rate of [address] or T-wave changes. Patient's brain CT demonstrated no acute intracranial processes. Patient's head neck CT demonstrated no intracranial large vessel occlusion, aneurysm or vascular malformation. It was positive for atherosclerotic plaque results in greater than 80 percent left proximal ICA stenosis. In addition was an incidental finding of a left lower lobe pulmonary embolism and associated left lower lobe consolidation. ED unable to get a hold the general road production manager physician for [facility], will admit. Patient admitted for neuro deficit rule out stroke and left lower lobe pulmonary embolism. Patient History Medical History (Updated 06/02/21 @ 04:12 by ADITHYA Donato) Atrial fibrillation with controlled ventricular rate Restrictive airway disease Surgical History (Updated 06/02/21 @ 04:12 by ADITHYA Donato) H/O prostatectomy Family & Social History Family History (Updated 06/02/21 @ 04:13 by ADITHYA Donato) Mother Arthritis Father Leukemia Safety & Behavioral: Feels Safe in Current Yes, patient was with his and is retired Environment Been Physically Hurt or No Threatened By a Person Tobacco & Substance use: Smoking Status never alcohol intake frequency 1-2 glasses wine daily Substance Use Type never Meds Home Medications and Allergies Home Medications Medication Instructions Recorded Confirmed Type ascorbic acid (vitamin C) 250 mg 250 mg PO DAILY 06/02/21 06/02/21 History tablet aspirin 325 mg tablet 325 mg PO DAILY 06/02/21 06/02/21 History azelastine 137 mcg (0.1 %) nasal 2 spray INTRANASAL BID 06/02/21 06/02/21 History spray aerosol betamethasone valerate 0.1 % 1 applic TOPICAL DAILY PRN 06/02/21 06/02/21 History topical cream calcium citrate 500 mg PO DAILY 06/02/21 06/02/21 History flecainide 50 mg tablet 50 mg PO Q12H 06/02/21 06/02/21 History fluticasone propionate 50 1 spray INTRANASAL DAILY 06/02/21 06/02/21 History mcg/actuation nasal spray,suspension furosemide 20 mg tablet 20 mg PO DAILY 06/02/21 06/02/21 History levalbuterol tartrate 45 2 puff INHALATION Q4-6H PRN 06/02/21 06/02/21 History mcg/actuation aerosol inhaler (Xopenex HFA) multivitamin 1 tab PO DAILY 06/02/21 06/02/21 History omeprazole 20 mg capsule,delayed 20 mg PO BID 06/02/21 06/02/21 History release sildenafil 25 mg tablet See Rx Instructions .ROUTE 06/02/21 06/02/21 History .COMPLEX PRN tamsulosin 0.4 mg capsule 0.4 mg PO DAILY 06/02/21 06/02/21 History vitamin B complex 1 tab PO DAILY 06/02/21 06/02/21 History Allergies Allergy/AdvReac Type Severity Reaction Status Date / Time No Known Drug Allergies Allergy Verified 06/01/21 21:40 Review of Systems Review of Systems Narrative: All 12 point systems reviewed with the patient and are negative except otherwise documented. Exam Vital Signs (past 8 hours): - 06/01/21 21:28 06/01/21 21:36 06/01/21 21:53 Temperature 98.0 F Pulse Rate 76 80 72 Respiratory Rate 28 H 26 H Blood Pressure 248/116 H 199/102 H Pulse Oximetry 93 93 93 06/01/21 22:00 06/01/21 22:15 06/01/21 22:30 Temperature Pulse Rate 74 65 65 Respiratory Rate 31 H 23 24 Blood Pressure 183/90 H 176/86 H Pulse Oximetry 94 91 06/01/21 23:00 06/01/21 23:30 06/02/21 00:00 Temperature Pulse Rate 67 67 64 Respiratory Rate 29 H 26 H 24 Blood Pressure 175/82 H 158/77 H 155/85 H Pulse Oximetry 91 98 98 06/02/21 00:30 06/02/21 01:00 06/02/21 01:30 Temperature Pulse Rate 68 67 66 Respiratory Rate 25 H 19 19 Blood Pressure 162/81 H 168/83 H 174/81 H Pulse Oximetry 97 98 98 06/02/21 02:00 Temperature Pulse Rate 68 Respiratory Rate 23 Blood Pressure 160/88 H Pulse Oximetry 97 Oxygen Delivery Method Room Air Narrative Exam Narrative: General: Patient is a well-developed, well-nourished in no distress at this time. HEENT: Normocephalic, atraumatic, extraocular muscles intact, oral pharynx is clear and mucous membranes are moist. Neck is supple and symmetric, trachea is midline, no adenopathy, no thyroid enlargement, nontender, no masses palpated. Negative for JVD Chest: Normal AP diameter and contour without kyphoscoliosis, no nasal flaring, retractions, but positive tachypneic labored breathing Lungs: Auscultation of all lung marquez gross wheezes throughout all lobes Cardio: regular rate and rhythm without murmur, rubs, or gallops, no carotid bruit, no cardiac pulsations present. Abdomen: Soft nontender, negative for organomegaly, or masses. Bowel sounds are present in all 4 quadrants without guarding or rebound, no CVA tenderness. Musculoskeletal: Muscle strength and tone are equal within normal limits, no deformity, crepitus, effusions, cyanosis, or clubbing present. mild equal bilateral nonpitting edema ankles and feet. Full range of motion intact radial and pedal pulses are normal. Skin: Warm dry and intact without rashes, ulcerations or petechiae. Neuro: Alert and orientated x3, strength is +5/5 in all extremities, sensation to touch intact, no gross deficits noted of cranial nerves. Psych: Patient has a well-kept appearance, appropriate affect, mental status attitude thought context and judgment are appropriate for age. Objective Labs Result Diagrams: 06/01/21 21:37 06/01/21 21:37 Labs: Laboratory Results - last 24 hr 06/01/21 06/01/21 06/01/21 21:37 21:37 21:37 WBC 4.6 RBC 4.50 Hgb 14.7 Hct 44.9 MCV 99.8 MCH 32.6 MCHC 32.6 RDW 13.4 Plt Count 195 Neut % (Auto) 50.5 Lymph % (Auto) 34.1 Sharkey % (Auto) 12.7 Eos % (Auto) 2.1 Baso % (Auto) 0.6 Neut # (Auto) 2300 Lymph # (Auto) 1600 Sharkey # (Auto) 600 Eos # (Auto) 100 Baso # (Auto) 0 PT 12.4 INR 1.1 APTT 30 Sodium 141 Potassium 4.6 Chloride 103 Carbon Dioxide 32 BUN 12 Creatinine 0.67 Estimated GFR > 60.0 BUN/Creatinine Ratio 17.9 Glucose 98 Calcium 9.2 Total Bilirubin 0.4 AST 42 ALT 26 Alkaline Phosphatase 63 Total Creatine Kinase 139 CK-MB (CK-2) 1.34 CK-MB (CK-2) Rel Index 1.0 L Troponin I < 0.012 Total Protein 7.3 Albumin 4.4 Globulin 2.9 Albumin/Globulin Ratio 1.5 SARS-CoV-2 (PCR) 06/01/21 22:17 WBC RBC Hgb Hct MCV MCH MCHC RDW Plt Count Neut % (Auto) Lymph % (Auto) Sharkey % (Auto) Eos % (Auto) Baso % (Auto) Neut # (Auto) Lymph # (Auto) Sharkey # (Auto) Eos # (Auto) Baso # (Auto) PT INR APTT Sodium Potassium Chloride Carbon Dioxide BUN Creatinine Estimated GFR BUN/Creatinine Ratio Glucose Calcium Total Bilirubin AST ALT Alkaline Phosphatase Total Creatine Kinase CK-MB (CK-2) CK-MB (CK-2) Rel Index Troponin I Total Protein Albumin Globulin Albumin/Globulin Ratio SARS-CoV-2 (PCR) Negative Assessment & Plan Assessment & Plan narrative: Patient is a 75-year-old male with a history of atrial fibrillation, restrictive airway disease, prostate cancer in 1998 who who is admitted for left-sided neurological deficit with stroke rule out, and left lower lobe pulmonary embolism. 1. Neurological deficit, (Left-sided facial droop/left-sided leg and hand weakness), rule out possible TIA vs stroke, acute, guarded, present on admission -differential diagnosis TIA, stroke, ischemic stroke, intracranial hemorrhage, subdural hematoma, epidural hematoma, seizure, brain tumor, migraine, vertigo, hypoglycemia, Carla Alton syndrome, multiple sclerosis, aortic dissection -ABCD 2 score: 6 High Risk, NIH: 2 (in ED), upon admit NIH: 0 -last echo 11/2018 EF 60-65 %, history of pulmonary hypertension -Vital signs q.4 hours, neuro checks Qshift, notify provider for temp greater than 38 C, , heart rate >100 -treat systolic blood pressure>220 or diastolic blood pressure> 120 -activity bed rest until initial physical therapy assessment is performed, then mobilize NATHANIEL as guided by Physical therapy, strict fall precautions. -supplemental O2 to maintain> 88%. -Diet NPO until swallow evaluation is done, then heart healthy if cleared -fluids:None -MR ordered for tomorrow -consult ordered: PT, OT, speech, discharge planning -Medications: lipitor 80mg, holding Plavix- until MR completed -labs troponins, Lipid panel, PT/INR/PTT, BNP, ProBNP, TSH -tele stroke consult in the ED: The determined tPA not appropriate as symptoms were too mild. -Dr. William in the ED contacted Dr. Silvestre stated that Dr. Sneed was on-call. Dr. William was unable to get a hold of Dr. Sneed she then was unable to connect again with Dr. Silvestre. Upon Dr. William's requested, the hospital service is happy to except and admit the patient until can be contacted in the morning to take over the case. 2. Left lower lobe pulmonary embolism, acute, present on admission -patient to be monitored for PE presenting symptoms-holding anticoagulation for PE until MR in the morning completed. -Tele stroke consulted in ED regarding PE and had no recommendation requiring an ticoagulation at this time. 3. Atrial fibrillation with controlled rate, chronic, present on admission -Continue patient's flecainide -patient manage heard on telemedicine 4. COPD, chronic, present on admission -continue patient's Spiriva Code status: DNR Surrogate decision maker: Josselyn Atkins-spouse COVID PCR: Negative COVID vaccination: Pfizer December 2020 VTE/DVT prophylaxis: SCDs only, anticoagulation termination to be made post MR Estimated length of stay: Less than 2 midnights I have utilized all available immediate resources to obtain, update, or review the patient's current medications. I confirmed that the patient's advanced care plan is present, Code status is documented and/or surrogate decision maker is listed in the patient's medical record. Scores GCS [place] coma scale eye opening: Spontaneous [place] coma scale verbal response: Orientated [place] coma scale motor response: Obey commands [place] coma scale total score: 15 Quality MIPS - Admit I confirm the patient?s Advance Care Plan is present, Code status is documented, Surrogate decision maker is in patient?s record [If Yes, STOP here]: Yes
--- NOTE | 2021-06-02 03:53 | PC.ADMIT ---
Patient admitted to room 215 at 0220 from ER via stretcher. Ambulated to bed and then to bathroom and is slightly unsteady on feet. Denies any dizziness and reports no use of assistive device prior to admission. Is alert and oriented. NIH = 1 due to numbness in left LE. Breath sounds CTA with RA sat of 93%. HRR and telemetry reading was SR. 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 Denies nausea. BT present and abdomen is soft. Denies dysuria, frequency or urgency with urination but reports he had 2 episodes of incontinence last week while in [place] but believes it was due to difference in altitude. Is able to move himself in bed. Denies pain. Bilateral calf SCD's applied. Does have trace edema in bilateral ankles/feet. Skin is cool to touch. Has lesions on anterior upper chest and right lower back and reports he was recently to blocker heated metal forms and had biopsy but results are not yet known. Relates he had fall last Wednesday and hit his head but was not seen in an ER. 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 Oriented to bed controls and call light. [email or web address] Admission Note: The patient,Lenin Atkins,75 y/o, was given written information regarding hospital policies, unit procedures and contact persons. Patient's smoking status: Never smoker. Vital Signs - 8 hr 06/01/21 21:28 06/01/21 21:36 06/01/21 21:53 Temperature 98.0 F Pulse Rate 76 80 72 Respiratory Rate 28 H 26 H Blood Pressure 248/116 H 199/102 H Pulse Oximetry 93 93 93 06/01/21 22:00 06/01/21 22:15 06/01/21 22:30 Temperature Pulse Rate 74 65 65 Respiratory Rate 31 H 23 24 Blood Pressure 183/90 H 176/86 H Pulse Oximetry 94 91 06/01/21 23:00 06/01/21 23:30 06/02/21 00:00 Temperature Pulse Rate 67 67 64 Respiratory Rate 29 H 26 H 24 Blood Pressure 175/82 H 158/77 H 155/85 H Pulse Oximetry 91 98 98 06/02/21 00:30 06/02/21 01:00 06/02/21 01:30 Temperature Pulse Rate 68 67 66 Respiratory Rate 25 H 19 19 Blood Pressure 162/81 H 168/83 H 174/81 H Pulse Oximetry 97 98 98 06/02/21 02:00 06/02/21 02:20 06/02/21 02:45 Temperature 97.5 F L Pulse Rate 68 71 Respiratory Rate 23 20 Blood Pressure 160/88 H 189/102 H 173/95 H Pulse Oximetry 97 93
[2021-06-02 05:32] LABS: Ur Creatinine 20 (Normal); Ur Specific Gravity 1.025 (Normal); Urine pH 5 (Normal)
[2021-06-02 05:33] LABS: UR Morphine/Opiate cutoff 300 Negative (Negative); Urine Amphetamines Negative (Negative); Urine Barbiturates Negative (Negative); Urine Benzodiazepines Negative (Negative); Urine Cocaine Negative (Negative); Urine MDMA Negative (Negative); Urine Methadone Negative (Negative); Urine Methamphetamines Negative (Negative); Urine Oxycodone Negative (Negative); Urine Phencyclidine Negative (Negative); Urine Tetrahydrocannabinol Negative (Negative); Urine Tricyclic Antidepressant Negative (Negative)
[2021-06-02 05:45] LABS: INR 1.1 (0.9-1.3); Prothrombin Time 12.6 SECONDS (10.1-12.7)
[2021-06-02 05:48] LABS: PTT Partial Thromboplastin Tim 29 SECONDS (26.4-36.2)
[2021-06-02 05:51] LABS: BUN Creatinine Ratio 17.4 (6-22); Blood Urea Nitrogen 12 mg/dL (9-20); Calcium 8.7 mg/dL (8.4-10.2); Carbon Dioxide 33 mmol/L (22-32); Chloride 105 mmol/L (98-107); Cholesterol 133 mg/dL (140-199); Estimated Glomerular Filt Rate > 60.0 mL/min (>60); Glucose 101 mg/dL (80-110); HDL Cholesterol 47 mg/dL (40-60); HEMOLYSIS < 15 (0-50); LDL Cholesterol Calculated 74 mg/dL (<100); Potassium 4.5 mmol/L (3.4-5.1); Sodium 139 mmol/L (137-145); Triglycerides 61 mg/dL (35-150)
[2021-06-02 06:01] LABS: NT-proBNP (BNP-Adult 18+) 333 pg/mL (<450); Troponin I < 0.012 ng/mL (0.01-0.034)
[2021-06-02] MEDS: ASPIRIN EC 81 MG TABLET PO (08:17)
--- NOTE | 2021-06-02 08:52 | CM.DANOTE ---
DCP: Case received, EMR reviewed and met with patient. Introduced self and role. Was able to obtain information regarding patient's baseline activity status prior to his hospitalization. DCP assessment completed with information currently available. Patient is a 75 year old male who admitted yesterday evening to the care of the hospitalist team. PCP: Dr. Sneed. Payer: confirmed: Medicare/[employer]. Patient came to the hospital via private vehicle secondary to having some tingling to his left hand and foot. Patient had recently been in [place] for his brother's birthday libertarian, and had a syncopal episode when he was there. Patient had thought it may be likely to the altitude. Patient is here for a CVA work up today. Met with patient in his room. He was laying in bed, alert and oriented, pleasant. He resides in [facility] with his spouse, Josselyn. His face sheet indicates [address], but patient stated that's just where his mail goes. He is independent at his baseline, and drives. He indicated, when he was in [place], the view affected him, and after a few glasses of wine, felt faint. He stated that when he drove back to [place], he had no symptoms. He had consulted with his nephew, who is a primary care provider. Patient will be having MRI today, and working with the therapy team. At his baseline, he is independent with his ambulations. P: DCP to continue to follow for any needs. Patient should be able to go home when he is deemed medically stable. Irma Pineda RN/[employer]
--- NOTE | 2021-06-02 09:20 | PM.PN.1 ---
Subjective Subjective Date Patient Seen: 06/02/21 Time Patient Seen: 08:50 Exam Vital Signs (past 8 hours): - 06/02/21 01:30 06/02/21 02:00 06/02/21 02:20 Temperature 97.5 F L Pulse Rate 66 68 71 Respiratory Rate 19 23 20 Blood Pressure 174/81 H 160/88 H 189/102 H Pulse Oximetry 98 97 93 06/02/21 02:45 06/02/21 07:28 Temperature 97.6 F Pulse Rate 64 Respiratory Rate 16 Blood Pressure 173/95 H 159/85 H Pulse Oximetry 95 Oxygen Delivery Method Room Air Oxygen Flow Rate 0 Narrative Exam Narrative: lorena costello sitting up in bed working with speech therapy Const General: cooperative and healthy appearing HENOH Head: normal to inspection, normocephalic and atraumatic Eyes General: appearance normal, both eyes and all related structures Neck Lymphatic: No lymphadenopathy Resp Auscultation: clear to auscultation bilaterally Percussion: percussion normal Cardio Rate: regular rate Rhythm: regular rhythm Heart Sounds: S1 normal and S2 normal GI Inspection: normal to inspection Palpation: soft Auscultation: normal bowel sounds Skin General: no rashes or lesions noted Neuro General: patient alert, patient awake, patient oriented x3, tone normal and moves all extremities Extrem General: normal to inspection and full ROM Psych Appearance: grossly normal and well kempt Mental Status: mental status grossly normal Objective Labs Result Diagrams: 06/01/21 21:37 06/02/21 05:10 Labs: Laboratory Results - last 24 hr 06/01/21 06/01/21 06/01/21 21:37 21:37 21:37 WBC 4.6 RBC 4.50 Hgb 14.7 Hct 44.9 MCV 99.8 MCH 32.6 MCHC 32.6 RDW 13.4 Plt Count 195 Neut % (Auto) 50.5 Lymph % (Auto) 34.1 Pitkin % (Auto) 12.7 Eos % (Auto) 2.1 Baso % (Auto) 0.6 Neut # (Auto) 2300 Lymph # (Auto) 1600 [place]kin # (Auto) 600 Eos # (Auto) 100 Baso # (Auto) 0 PT 12.4 INR 1.1 APTT 30 Sodium 141 Potassium 4.6 Chloride 103 Carbon Dioxide 32 BUN 12 Creatinine 0.67 Estimated GFR > 60.0 BUN/Creatinine Ratio 17.9 Glucose 98 Calcium 9.2 Total Bilirubin 0.4 AST 42 ALT 26 Alkaline Phosphatase 63 Total Creatine Kinase 139 CK-MB (CK-2) 1.34 CK-MB (CK-2) Rel Index 1.0 L Troponin I < 0.012 NT-Pro-B Natriuret Pep Total Protein 7.3 Albumin 4.4 Globulin 2.9 Albumin/Globulin Ratio 1.5 Triglycerides Cholesterol LDL Cholesterol, Calc HDL Cholesterol TSH U Opiates 300ng/mL cut Ur Oxycodone Screen Urine Methadone Screen Ur Barbiturates Screen U Tricyclic Antidepress Ur Phencyclidine Scrn Ur Amphetamines Screen U Methamphetamines Scrn Ur MDMA Scrn (Ecstasy) U Benzodiazepines Scrn Urine Cocaine Screen U Marijuana (THC) Screen SARS-CoV-2 (PCR) 06/01/21 06/01/21 06/02/21 21:37 22:17 05:10 WBC RBC Hgb Hct MCV MCH MCHC RDW Plt Count Neut % (Auto) Lymph % (Auto) [place] % (Auto) Eos % (Auto) Baso % (Auto) Neut # (Auto) Lymph # (Auto) [place] # (Auto) Eos # (Auto) Baso # (Auto) PT 12.6 INR 1.1 APTT 29 Sodium Potassium Chloride Carbon Dioxide BUN Creatinine Estimated GFR BUN/Creatinine Ratio Glucose Calcium Total Bilirubin AST ALT Alkaline Phosphatase Total Creatine Kinase CK-MB (CK-2) CK-MB (CK-2) Rel Index Troponin I NT-Pro-B Natriuret Pep Total Protein Albumin Globulin Albumin/Globulin Ratio Triglycerides Cholesterol LDL Cholesterol, Calc HDL Cholesterol TSH 1.50 U Opiates 300ng/mL cut Ur Oxycodone Screen Urine Methadone Screen Ur Barbiturates Screen U Tricyclic Antidepress Ur Phencyclidine Scrn Ur Amphetamines Screen U Methamphetamines Scrn Ur MDMA Scrn (Ecstasy) U Benzodiazepines Scrn Urine Cocaine Screen U Marijuana (THC) Screen SARS-CoV-2 (PCR) Negative 06/02/21 06/02/21 05:10 05:15 WBC RBC Hgb Hct MCV MCH MCHC RDW Plt Count Neut % (Auto) Lymph % (Auto) [place] % (Auto) Eos % (Auto) Baso % (Auto) Neut # (Auto) Lymph # (Auto) [place] # (Auto) Eos # (Auto) Baso # (Auto) PT INR APTT Sodium 139 Potassium 4.5 Chloride 105 Carbon Dioxide 33 H BUN 12 Creatinine 0.69 Estimated GFR > 60.0 BUN/Creatinine Ratio 17.4 Glucose 101 Calcium 8.7 Total Bilirubin AST ALT Alkaline Phosphatase Total Creatine Kinase CK-MB (CK-2) CK-MB (CK-2) Rel Index Troponin I < 0.012 NT-Pro-B Natriuret Pep 333 Total Protein Albumin Globulin Albumin/Globulin Ratio Triglycerides 61 Cholesterol 133 L LDL Cholesterol, Calc 74 HDL Cholesterol 47 TSH U Opiates 300ng/mL cut Negative Ur Oxycodone Screen Negative Urine Methadone Screen Negative Ur Barbiturates Screen Negative U Tricyclic Antidepress Negative Ur Phencyclidine Scrn Negative Ur Amphetamines Screen Negative U Methamphetamines Scrn Negative Ur MDMA Scrn (Ecstasy) Negative U Benzodiazepines Scrn Negative Urine Cocaine Screen Negative U Marijuana (THC) Screen Negative SARS-CoV-2 (PCR) [facility] Medical History (Updated 06/02/21 @ 04:12 by AYALA DonatoDEVI) Atrial fibrillation with controlled ventricular rate Restrictive airway disease Surgical History (Updated 06/02/21 @ 04:12 by ADITHYA Donato) H/O prostatectomy Family History (Updated 06/02/21 @ 04:13 by AYALA DonatoDEVI) Mother Arthritis Father Leukemia Social History household members: spouse Smoking Status: Never smoker alcohol intake: current Assessment & Plan Assessment & Plan narrative: Patient is a 75-year-old male with a history of atrial fibrillation, restrictive airway disease, prostate cancer in 1998 who who is admitted for left-sided neurological deficit with stroke rule out, and left lower lobe pulmonary embolism. 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 consult ordered: PT, OT, speech, discharge planning Medications: lipitor 80mg tele stroke consult in the ED determined tPA not appropriate as symptoms were too mild. #Left lower lobe pulmonary embolism, acute, present on admission Tele stroke consulted in ED regarding PE and had no recommendation requiring anticoagulation at this time. On Lovenox; stable; consider Eliquis for discharge as he also has hx of afib. #Atrial fibrillation with controlled rate, chronic, present on admission Continue patient's flecainide in setting of stroke and PE may be contributing factor #carotid stenosis 80% per scan will need outpt vascular f/u #COPD, chronic, present on admission stable, continue patient's Spiriva dispo: likely dc in am if stable Code status: DNR Surrogate decision maker: Josselyn Atkins-spouse COVID PCR: Negative COVID vaccination: Pfizer December 2020 VTE/DVT prophylaxis: SCDs only, anticoagulation termination to be made post MR
--- NOTE | 2021-06-02 09:28 | ST.IPIE ---
Visit Care Team Role Provider Type Mateusz Sneed MD Other Providers Physician Specialty: Family Practice Address: [facility] [place], [address] Email: [email or web address] Genia William DO Emergency Provider Physician Referring Provider Specialty: Emergency Medicine Address: [address] [place] [address], [id number] Email: [email or web address] ADITHYA Donato Admit Provider Physician Attending Provider Specialty: Medical Address: [address] [place] [address], [id number] Email: Current Diagnoses Cerebral infarction, unspecified (06/01/21) Past Medical History (Last Updated 06/02/21 @ 04:12 by ADITHYA Donato) Atrial fibrillation with controlled ventricular rate (Medical) H/O prostatectomy (Medical) Restrictive airway disease (Medical) ST IP Initial Evaluation Report LOCAL [employer] Clinical Swallow Evaluation Start: 06/02/21 09:17 Freq: Status: Active Protocol: Document 06/02/21 09:17 AMELIA (Rec: 06/02/21 09:28 AMELIA [id number]) Clinical Swallow Evaluation Session Time Visit Start Time 08:50 Visit Stop Time 09:10 Total Visit Minutes 20 Referral Referring Provider ADITHYA Donato Reason for Referral Stroke protocol Setting Assessment Location Acute Care Visit Type Note Type Initial evaluation Patient Information Identification Type Name,ID Card History Per H&P: Patient is a 75-year- old male with a history of atrial fibrillation, restrictive airway disease, prostate cancer in 1998 who who is admitted for left-sided neurological deficit with stroke rule out, and left lower lobe pulmonary embolism. Subjective Observations The pt was alert, lying in bed and greeted this clinician upon arrival. He had eaten breakfast already without difficulty, including sausage and orange slices. He reported regular morning congestion d/ t sleeping on his stomach. Stated he hacks the buildup out every morning after a hot shower to break it up. He is working with Dr. Rodgers, ENT, regarding this. The pt reported no dysphagia symptoms . Speech and expressive/ receptive language were clear and appropriate during extensive conversation during this session. Reported by Patient Comment Pt reported drooling at night. Denied drooling during daytime. Current Diet Regular,Thin liquids Baseline Feeding Method Independent in self-feeding Patient Questionnaire No Objective Assessment Mental Status Alert,Responsive,Cooperative Oral Integrity WFL Dentition Within normal limits Lip Function Within normal limits Observation of Lips at Rest Symmetrical Pucker Within normal limits Lip Retraction Within normal limits Alternating Pucker/Lip Retraction Within normal limits Tongue Function Within normal limits Observations of Tongue at Rest Within normal limits Tongue Protrusion Deviates to the right Tongue Retraction Within normal limits Tongue Lateralization Within normal limits Jaw Function Within normal limits Observations of Jaw at Rest Within normal limits Jaw Opening Within normal limits Jaw Closing Within normal limits Jaw Lateralization Within normal limits Hard/Soft Palate Function Within normal limits Observations of Hard/Soft Palate Within normal limits Nasality Within normal limits Phonation Within normal limits Respiratory Sufficiency Within normal limits Comment Minimal lingual deviation to right side observed upon protrusion Food and Liquid Trials Position During Assessment Upright (90 degrees) Liquids Trialed Thin Solids Trialed Mechanical Soft,Regular Administration Type Straw,Self-feeding Oral Impairment Within normal limits Pharyngeal Impairment Within normal limits Pharyngeal Phase Comments Minimal throat clearing observed following thin liquid intake x2. Fatigue/Endurance Endurance WNL [place] Swallow Protocol No Findings Swallowing Function Within normal limits Severity of Swallow Impairment Within functional limits Prognosis Good Based on Cognitive status,Duration of symptoms/severity Impact on Safety and Functioning No limitations Recommendations Instrumental Assessment No Swallowing Treatment No Recommended Solids Regular Recommended Liquids Thin Safety Precautions/Swallowing Reduce distractions,Remain Recommendations upright (90 degrees) during all oral intake,Upright position at least 30 minutes after meals,Small bites and sips when eating,Slow rate; swallow between bites Medication Recommendations As Tolerated Discharge Recommendations Home Education Patient/Caregiver Education Described results of evaluation,Patient expressed understanding of evaluation, Patient expressed understanding of safety precautions,Patient expressed understanding of feeding recommendations
--- NOTE | 2021-06-02 10:43 | DI.ECHO.S_ITS ---
[place] [facility]---------+ [facility] +---------+ : : [address] : : : : [id number] : : : : Phone: [phone]+ Echocardiogram Report + + :Name: CATRACHITO PERAZA Study Date: 06/02/2021 Height: 70 in : :[facility] ReadingLocation: Weight: 204 lb : : Gender: Male BSA: 2.1 m2 : :: 1945 Age: 75 yrs BP: 173/95 mmHg: :Reason For Study: TIA/CVA : :Ordering Physician: SEN, : :NAGI Performed By: Tila Carvajal : :Referring: NAGI CHATTERJEE M : + + Interpretation Summary Mild concentric left ventricular hypertrophy with ejection fraction 60-65%. Mildly dilated left atrium. No significant valvular abnormality. Mildly enlarged ascending aorta. Procedure: A two-dimensional transthoracic echocardiogram with color flow and Doppler was performed. The study quality was technically adequate. Comparison is made with the echocardiogram of 11/23/2018. The patient was in sinus rhythm with heart rates between 49-67 bpm during the exam. Left Ventricle: The left ventricle is normal in size. There is mild concentric left ventricular hypertrophy. The ejection fraction is estimated to be 60-65%. There are no focal wall motion abnormalities. Diastolic parameters suggest probable normal left ventricular diastolic function and normal filling pressures. Right Ventricle: The right ventricle is normal in size and function. Atria: The left atrium is mildly dilated. Right atrial size is normal. There is no Doppler evidence for an interatrial shunt. Mitral Valve: The mitral valve is normal in structure and function. There is trace mitral regurgitation. Aortic Valve: The aortic valve is trileaflet. The aortic valve opens well. There is no aortic valve stenosis. No aortic regurgitation is present. Tricuspid Valve: The tricuspid valve is normal in structure and function. There is trace tricuspid regurgitation. Pulmonary artery pressures cannot be estimated because of the lack of a measurable TR jet velocity but the IVC suggests a CVP of around 3 mmHg. Pulmonic Valve: The pulmonic valve is not well seen, but is grossly normal. There is mild pulmonic regurgitation. Great Vessels: The aortic root is normal size. The ascending aorta is mildly enlarged. The pulmonary artery is dilated. The IVC is of normal diameter and collapses greater than 50% with a sniff. This suggests a low right atrial pressure of 3 mm Hg. Pericardium/ Pleura There is no pericardial effusion. There is no pleural effusion. MMode/2D Measurements & Calculations LVIDd: 4.3 cm LVOT diam: 2.2 cm LVIDs: 2.8 cm Ao root diam: 3.3 cm FS: 33.7 % asc Aorta Diam: 3.5 cm IVSd: 1.1 cm Ao Arch Diam (Prox Trans): 3.4 cm LVPWd: 1.1 cm LV stewart. diameter/BSA (cm/m^2): 2.0 LV sys. diameter/BSA (cm/m^2): 1.3 LA A2 area: 23.0 cm2 RA long axis: 5.4 cm LA A4 area: 21.7 cm2 RA area: 19.1 cm2 LA length (vol): 5.4 cm RA vol: 57.1 ml LA vol: 78.2 ml RA : 27.1 ml/m2 LA vol index: 37.1 ml/m2 IVC diam: 1.9 cm RVD1 (basal): 4.8 cm TAPSE: 1.9 cm Doppler Measurements & Calculations MV E max yevgeniy: 65.8 cm/sec PA V2 max: 100.2 cm/sec MV A max yevgeniy: 50.0 cm/sec PA V2 mean: 71.9 cm/sec MV E/A: 1.3 PA mean P.3 mmHg Med Peak E' Yevgeniy: 6.8 cm/sec E/E' med: 9.7 Lat Peak E' Yevgeniy: 11.9 cm/sec E/E' lat: 5.5 E/e' average: 7.6 MV dec time: 0.24 sec Electronically signed by: Staci Velásquez on Reading Physician:06/02/2021 12:40 PM
[2021-06-02] MEDS: FLECAINIDE 100 MG TABLET 50 MG PO ×2 (11:33→21:37)
--- NOTE | 2021-06-02 12:21 | PT.IIE ---
Current Diagnoses Cerebral infarction, unspecified (06/01/21) Medical History (Last Updated 06/02/21 @ 04:[address] [facility] Atrial fibrillation with controlled ventricular rate Restrictive airway disease Physical Therapy Inpatient Evaluation/Re-Eval M1 PT/OT-IP Prior Functional Status Start: 06/02/21 08:15 Freq: NEEDED Status: Active Protocol: Document 06/02/21 12:21 AW (Rec: 06/02/21 13:35 AW [id number]) Medical Review Prior Functional Status Medical History Reviewed Yes Communication WNL. Pt is an effective verbal communicator. Mobility and Gait Pt is independent without assistive device but does report some balance disturbance at baseline. He was seen in outpatient PT in 2019 and made good gains but states he still tends to stay close to carnes and furniture at home and is extremely careful out in the community. He uses a treadmill to walk 2 miles 3-5x/week but needs to use the rails for stability. Activities of Daily Living and IADL's Pt has chronic left shoulder pain and his provides assist to wash his back. He is otherwise independent with all ADL's. 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 Prior Functional Level (Other details) Pt fell and hit his head a week ago but blames it on altitude. 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 He does not use supplemental O2 but admits to increased work of breathing with daily tasks. Social History Household Members spouse Living Arrangements House Number of Floors (Floors) One Floor Number of Stairs To Enter/Railing? 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 He lives with his , Anamaria, in [place]. His is also retired. M2 PT-IP Current Condition Start: 06/02/21 08:15 Freq: NEEDED Status: Active Protocol: Document 06/02/21 12:21 AW (Rec: 06/02/21 13:35 AW [id number]) Physical Therapy Current Condition Current Condition Evaluation Date 06/02/21 Treatment Diagnosis R subacute thalamic infarct; balance & coordination deficits; diff walking Onset Date 06/01/21 M3 PT-IP Subjective Start: 06/02/21 08:15 Freq: NEEDED Status: Active Protocol: Document 06/02/21 12:21 AW (Rec: 06/02/21 13:35 AW [id number]) Subjective Physical Therapy Visit Type Type Initial Evaluation Visit Start Time 10:05 Visit Stop Time 12:21 Total Visit Minutes 29 Notes Pt seen for split visits 1005- 1015 and [id number]. Number of MILKING SYSTEM INSTALLER Visits 0 Physical Therapy Visit Comments Patient Comments Pt is willing to participate with PT Patient Goals Improve balance and overall confidence with mobility Therapy Pain Assessment Pain When Pain Assessed During Mobility Pain Present Pain Present Denied Pain M4 PT-IP Mobility and Gait Start: 06/02/21 08:15 Freq: NEEDED Status: Active Protocol: Document 06/02/21 12:21 AW (Rec: 06/02/21 13:35 AW [id number]) PT-Bed Mobility Assessment Supine to Sit Supine to Sit Independent PT-Transfer Assessment Sit to and From Stand Sit to and from Stand Standby Assistance Equipment Transfer Assistive Device None,Gait Belt Orthotic/Prosthetic Devices or Brace: No Transfers Transfer Destination Bed Transfer Technique ambulated Transfer Ability Level of Assist Standby Assistance Comments Mobility Comments Pt was sitting up on the bed as PT arrived. BP 153/102 HR 98. Pt completed all bed mobility IND and was able to sit EOB with and without UE support. He stood SBA due to initial unsteadiness and stepped away from the bed for balance assessment. He ambulated in the halls SBA to [facility] during dynamic balance testing. He returned to the room and sat EOB with lunch set up in front of him. He was left with call light in reach . Gait Assessment Gait Gait Assistance Required: Standby Assistance,Contact Guard Assist Distance (Feet) 200 Assistive Devices Assistive Device None,Gait Belt Orthotic/Prosthetic Devices or Brace: No Gait Deviations General Gait Pattern Ataxic,Decreased Feet Clearance,Lateral Trunk Lean, Wide Based Gait Factors Limiting Gait Function Factors Limiting Gait Function Decreased Activity Tolerance, Decreased Sensation,Decreased Strength,Incoordination,Poor Balance,Respiratory Distress Comments Gait Comments Pt became SOB with gait but VS were stable. Gait was notable for LLE proprioception deficits as pt ambulated with poor awareness of LLE placement. He scored 8/12 on 4 -item DGI (single points deducted for normal gait, horizontal and vertical head turns, and change in speed). Stair Climbing Assessment Comments Stair Climbing Comments Not assessed. PT-Balance Assessment Sitting Balance and Reactions Static Sitting Balance Ability Normal Dynamic Sitting Balance Ability Good Standing Balance and Reactions Static Standing Balance Ability Fair Dynamic Standing Balance Ability Fair Balance Tests Romberg WNL EO; <5 sec EC Tandem Standing needs assist to assume position Functional Assessments Functional Tests Dynamic Gait Index 4-item DGI screen: 05/29 M5 PT-IP Objective Assessments Start: 06/02/21 08:15 Freq: NEEDED Status: Active Protocol: Document 06/02/21 12:21 AW (Rec: 06/02/21 13:35 AW [id number]) Orientation Orientation/Cognition Level of Alertness Alert Orientation Name,Day of Week,Place, Situation Language Function Ability No Deficits Noted Safety Awareness Decreased Safety Awareness Memory Description No Deficits Noted Gross Range of Motion Upper Extremity ROM Assessment Left Impaired Impairments chronic left shoulder pain Lower Extremity ROM Assessment Within Functional Limits Strength Upper Extremity Strength Assessment Left Impaired Shoulder 4/5 likely 2/2 pain Lower Extremity Strength Assessment Left Impaired Hip 4+/5 Knee 4+/5 Ankle 4+/5 Comments Strength Comments RLE grossly 5/5 Coordination Assessment Gross Coordination Gross Coordination Impaired Assessment Finger to Nose Test Minimal Impairment Pronation/Supination Test Minimal Impairment Foot Tapping Test Minimal Impairment Coordination Comments Pt missed targets with LUE ~1 cm on finger to nose with EO and EC. Foot tapping evinced rocking on left foot vs rhythmic tapping toes on right foot. Sensation Assessment Sensation Gross Sensation Left UE Impaired,Left LE Impaired Light Touch Impaired Proprioception (Position) Impaired Sensation Description Tingling Muscle Tone Muscle Tone WNL Yes Other Assessments Other Other Assessments Cranial nerves grossly intact. Occulomotor and vestibular screenings WNL. M6 PT-IP Treatment Start: 06/02/21 08:15 Freq: NEEDED Status: Active Protocol: Document 06/02/21 12:21 AW (Rec: 06/02/21 13:35 AW [id number]) Physical Therapy Treatment Education Education Provided Safety Other Treatments Other Treatment Performed Educated pt on coordination and dynamic balance impairments. M7 PT-IP Assessment and Plan Start: 06/02/21 08:15 Freq: NEEDED Status: Active Protocol: Document 06/02/21 12:21 AW (Rec: 06/02/21 13:35 AW [id number]) PT Summary Assessment and Plan Potential Rehabilitation Potential Good Status of Condition at Evaluation Stable Summary Impairments Strength,Balance,Coordination, Sensation,Gait Assessment Summary Lenin is a 75 yo man seen for PT evaluation under stroke protocol. CTA demonstrates left proximal ICA stenosis ~80 %. MRI reveals subacute right thalamic infarct. Pt is independent in all regards at baseline but does admit to long-standing balance deficits . He was treated in outpatient PT last year and made good gains but continues to report decreased confidence in his balance. On evaluation, pt had coordination, proprioception deficits which affected his dynamic balance. He scored 8/ 12 on 4-item Dynamic Gait Index indicating a need for further balance intervention. PT discussed use of one or two trekking poles or single cane with pt who stated he was resistance but would think about it. This show card writer encouraged the pt to check in with his outpatient PT again for comparison with baseline standardized measures and to consider a new plan of care. Pt will be safe to discharge home with spouse assist and outpatient PT once medically stable. Goals Bed Mobility Goal Independent Transfer Goal Independent Gait Goal Independent Gait Distance 300 Other Goals - up/down 2 steps without railing IND Days to Meet Goals 2 Frequency of Treatment Frequency Of Treatment Once a Day Treatment Plan Physical Therapy Treatment Plan Gait Training,Balance Retraining,Discharge Planning, Neuromuscular Re-ed, Coordination Retraining Other Recommendations and Next Treatment static and dynamic balance Focus interventions Recommendations To Nursing Amount of Assist Needed Standby Assistance Discharge Recommendations PT Discharge Recommendations Home with Assistance, Outpatient PT Transportation Needs at Discharge Private Vehicle
--- NOTE | 2021-06-02 14:50 | OT.IP.EVAL ---
Current Diagnoses Cerebral infarction, unspecified (06/01/21) Past Medical History (Last Updated 06/02/21 @ 04:12 by [facility] Atrial fibrillation with controlled ventricular rate H/O prostatectomy Restrictive airway disease Surgical History (Last Updated 06/02/21 @ 04:12 by AYALA DonatoDEVI) H/O prostatectomy Occupational Therapy Inpatient Evaluation/Re-Eval M1 PT/OT-IP Prior Functional Status Start: 06/02/21 08:15 Freq: NEEDED Status: Active Protocol: Document 06/02/21 17:58 CGR (Rec: 06/02/21 18:14 CGR [id number]) Medical Review Prior Functional Status Medical History Reviewed Yes Communication WNL. Pt is an effective verbal communicator. Mobility and Gait Pt is independent without assistive device but does report some balance disturbance at baseline. He was seen in outpatient PT in 2019 and made good gains but states he still tends to stay close to carnes and furniture at home and is extremely careful out in the community. He uses a treadmill to walk 2 miles 3-5x/week but needs to use the rails for stability. Activities of Daily Living and IADL's Pt has chronic left shoulder pain and his provides assist to wash his back. He is otherwise independent with all ADL's. 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 Prior Functional Level (Other details) Pt fell and hit his head a week ago but blames it on altitude. 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 He does not use supplemental O2 but admits to increased work of breathing with daily tasks. Social History Household Members spouse Living Arrangements House Number of Floors (Floors) One Floor Number of Stairs To Enter/Railing? 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 He lives with his , Anamaria, in [place]. His is also retired. M1 PT/OT-IP Prior Functional Status Start: 06/02/21 17:57 Freq: NEEDED Status: Active Protocol: Document 06/02/21 17:58 CGR (Rec: 06/02/21 18:14 CGR [id number]) Medical Review Prior Functional Status Medical History Reviewed Yes Communication WNL. Pt is an effective verbal communicator. Mobility and Gait Pt is independent without assistive device but does report some balance disturbance at baseline. He was seen in outpatient PT in 2019 and made good gains but states he still tends to stay close to carnes and furniture at home and is extremely careful out in the community. He uses a treadmill to walk 2 miles 3-5x/week but needs to use the rails for stability. Activities of Daily Living and IADL's Pt has chronic left shoulder pain and his provides assist to wash his back. He is otherwise independent with all ADL's. 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 Prior Functional Level (Other details) Pt fell and hit his head a week ago but blames it on altitude. 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 He does not use supplemental O2 but admits to increased work of breathing with daily tasks. Social History Household Members spouse Living Arrangements House Number of Floors (Floors) One Floor Number of Stairs To Enter/Railing? 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 He lives with his , Anamaria, in [place]. His is also retired. M2 OT-IP Current Condition Start: 06/02/21 17:57 Freq: Status: Active Protocol: Document 06/02/21 17:58 CGR (Rec: 06/02/21 18:14 CGR [id number]) Occupational Therapy Current Condition Current Condition Evaluation Date 06/02/21 Treatment Diagnosis weakness/tingling L side and LLL PE Diagnosis Onset Date M3 OT- IP Subjective and Pain Start: 06/02/21 17:57 Freq: Status: Active Protocol: Document 06/02/21 17:58 CGR (Rec: 06/02/21 18:14 CGR [id number]) OT- Subjective Occupational Therapy Visit Type Type Initial Evaluation Visit Start Time 13:53 Visit Stop Time 14:50 Total Visit Minutes 57 Notes Pt's spouse present throughout session. OT Pain Assessment Pain When Pain Assessed At Rest Pain Present Pain Present Denied Pain M4 OT- IP ADL's Start: 06/02/21 17:57 Freq: Status: Active Protocol: Document 06/02/21 17:58 CGR (Rec: 06/02/21 18:14 CGR [id number]) OT [id number] Comments OT Self-Feeding Comments Not meal time OT ADL-Grooming General Evaluation Grooming Ability Independent Areas Needing Assistance Face Washing Comments OT Grooming Comments standing at sink OT ADL-Oral Care General Eval Oral Care Ability Independent Comments Oral Care Comments standing at sink OT ADL-Dressing General Eval Lower Body Dressing Ability Independent Areas Needing Assistance Socks OT ADL-Toileting General Evaluation Toileting Ability Independent Comments OT Toileting Comments simulated seated on toielt. OT ADL-Bathing Comments OT Bathing Comments not performed M5 OT- IP IADL's Start: 06/02/21 17:57 Freq: Status: Active Protocol: Document 06/02/21 17:58 CGR (Rec: 06/02/21 18:14 CGR [id number]) OT-Instrumental Activities of Daily Living Deficits IADL Deficits Identified No Deficits Home Safety Awareness Awareness of Need for Assistance at Home Good Awareness Ability to Problem Solve Emergency Able to Problem Solve Situations Medication Management Medication Management No Deficits Identified Money Management Money Management No Deficits Identified Meal Preparation Meal Preparation No Deficits Identified Plumber Plumber No Deficits Identified Driving Driving Caregiver Provides Assist M6 OT- IP Functional Cognition Start: 06/02/21 17:57 Freq: Status: Active Protocol: Document 06/02/21 17:58 CGR (Rec: 06/02/21 18:14 CGR [id number]) Cognitive Factors Limiting Selfcare Function Cognitive Ability Level of Alertness Alert Patient Orientation Name,Age,Birthday,Month,Date, Year,Day of Week,Place, Situation Attention Span Ability Capable of Focused Attention, Capable of Sustained Attention Ability to Follow Commands Able to Follow Multi-Step Commands OT- Vision and Hearing OT- Hearing Assessment OT- Hearing Assessment WFL OT- Vision Assessment Visual Acuity Glasses All The Time Visual Attentiveness WFL Occular Pursuits WFL Visual Convergence Impaired Visual Gunter WFL Vision Assessment Comments Pt wears bifocals M7 OT- IP Mobility and Balance Start: 06/02/21 17:57 Freq: Status: Active Protocol: Document 06/02/21 17:58 CGR (Rec: 06/02/21 18:14 CGR [id number]) OT- Bed Mobility Assessment Rolling Level of Assistance Independent Supine to Sit Supine to Sit Assist Independent Scooting Scooting to Edge of Bed Independent OT-Transfer Assessment Sit to and From Stand Sit to and from Stand Standby Assistance Transfers Transfer Ability Standby Assistance Technique Transfer Destination Bed,Toilet Transfer Technique Stand Step Pivot Devices Transfer Assistive Devices Gait Belt OT- Gait Assessment Gait Gait Assistance Required: Standby Assistance Assistive Devices Assistive Device Gait Belt OT- Balance Assessment Sitting Balance and Reactions Static Sitting Balance Ability Normal Dynamic Sitting Balance Ability Good M8 OT- IP Objective Assessments Start: 06/02/21 17:57 Freq: Status: Active Protocol: Document 06/02/21 17:58 CGR (Rec: 06/02/21 18:14 CGR [id number]) OT Gross Range of Motion Upper Extremity Range of Motion Assessment Within Functional Limits ROM Impairments Hx of L shld impairment noted with assessment but still WFL OT Strength Upper Extremity Strength Assessment Within Functional Limits Comments Strength Comments grossly 4+/5 except L shld not tested d/t hx of injury OT- Coordination Assessment Upper Extremity Finger to Nose Test Within Functional Limits Finger Tapping Test Within Functional Limits OT-Muscle Tone Assessment Muscle Tone WNL Yes OT Sensation Assessment Comments Summary Comments Pt states tingling to his L fingers and hand. Pt states that the tingling is the strongest at the tips and progressively lightens to his mid hand on the francis side where the tingling disappears. Of note, pt's R hand and arm appear slightly bigger than his left. 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 Edema Edema Absent M9 OT- IP Assessment and Plan Start: 06/02/21 17:57 Freq: Status: Active Protocol: Document 06/02/21 17:58 CGR (Rec: 06/02/21 18:14 CGR [id number]) OT Summary Assessment and Plan Potential Rehabilitation Potential Excellent Analytic Complexity at Evaluation Low Summary OT Impairments Sensation Progress Towards Goals Goals Met Assessment Summary Pt presents as a low complexity evalaution s/p admit for tingling to the L side. Pt was found to have a LLL PE. At time of eval, pt's tingling has improved and is only impacting his hand minimally and his lower leg. Pt is able to perform all ADLs at his baseline level of IND. No further OT needs at this time. Frequency of Treatment Frequency Of Treatment Discharge Discharge Recommendations OT Discharge Recommendations Home Transportation Needs at Discharge Private Vehicle
[2021-06-02] MEDS: ATORVASTATIN 20 MG TABLET 80 MG PO (21:35)
--- NOTE | 2021-06-02 21:59 | PC.NURSE ---
Pt is anxious to discharge, frustrated by frequency of interruptions when trying to sleep. Ambulates independently. NIH = 0. A and O x 4, eats, drinks and is able to sleep. Denies pain.
[2021-06-03 01:30] VITALS: BP 147/78; PULSE 64; RESP 16; TEMP 36.8; O2SAT 92
--- NOTE | 2021-06-03 01:55 | PC.NURSE ---
Patient asleep since start of shift. Now awakened and angry about staff waking him. Attempted to perform NIH but patient only minimally cooperative so unable to complete assessment although patient did state still has tingling sensation in both upper and lower left extremities. Breath sounds diminished throughout with RA sat of 92%. HRR w/elevated BP of 147/78. Telemetry reading was SA-SB w/BBB and SENIOR PHP WEB DEVELOPER reports HR drops intermittently with low of 38 bpm. Refused to wear SCD's. Denied pain. Fall risk score is high and bed alarm is activated.
[2021-06-03 06:41] VITALS: BP 187/68; PULSE 66; RESP 16; O2SAT 91
[2021-06-03 08:47] VITALS: BP 152/80; PULSE 61; RESP 16; TEMP 36.3; O2SAT 96
[2021-06-03] MEDS: FLECAINIDE 100 MG TABLET 50 MG PO (08:53)
[2021-06-03] MEDS: TAMSULOSIN 0.4 MG CAPSULE PO (08:53)
[2021-06-03] MEDS: ASPIRIN EC 81 MG TABLET PO (08:53)
[2021-06-03] MEDS: SODIUM CHLORIDE 0.9% FLUSH 10 ML IV (08:53)
--- NOTE | 2021-06-03 10:14 | P.DS_ITS ---
History of Present Illness History of Present Illness Date Patient Seen: 06/03/21 Time Patient Seen: 09:30 Chief complaint: LEFT SIDE NUMBNESS Discharge Providers Provider Date of admission: 06/01/21 23:34 Discharge Date: 06/03/21 Primary care physician: Nedra Consults: 06/02/21 02:03 Consult to Discharge Planning Routine Comment: stroke Consult to Occupational Therapy Evaluate & Treat Comment: stroke Physician Instructions: Evaluate and treat Consult to Physical Therapy Evaluate & Treat Comment: stroke Physician Instructions: Evaluate and Treat Consult to Speech Therapy Evaluate & Treat Comment: Stroke Physician Instructions: Evaluate and treat 06/02/21 02:13 Consult to Physician Routine Comment: ED attempted to contact Dr. Sneed/Konrad for admi Consulting Provider: Mateusz Sneed Reason for consultation: oncall PCP-take over case in am Has provider been notified: No Discharge provider: Mateusz Sneed MD Summary Hospital Course Discharge Diagnosis: thalamic CVA pulmonary embolism Hospital Course: Lenin Atkins is a 75-year-old male whose last known well was 830pm, presented to ED as acute stroke. He states he was brushing his teeth when he noticed that he developed weakness/tingling in his left fingers, followed by weakness in his left leg, finally resulting in left-sided facial weakness and droop that brought him into the ED. Patient with history of atrial fibrillation on flecainide, prostate cancer 999, GERD, and restrictive ventilat ory disease. Patient denies chest pain, shortness of breath, abdominal pain, nausea, vomiting, fever, body aches, chills, and is alert and orientated x3. Patient also reported to the ED that he broke down in [place] last week was feeling dizzy lightheaded he fell hitting his head with a LOC x seconds. He thought his symptoms were due to altitude, they drove back to [place] and he instantly felt better, patient is on no anticoagulants for his atrial fibrillation. Upon admit to the floor patient states that his deficits have resolved and only senses some mild tingling in his left hand and left foot. Patient denies chest pain, new or worsening shortness of breath, abdominal pain, nausea, vomiting, headache, changes in vision, fever, body aches, chills, hematuria, melena, falls, difficulty with balance or coordination. Patient does note that on that that same trip to [place] a week ago during two nights he was incontinent of urine. The patient does note that he had prostate cancer 99 and prostatectomy. But is only suffered 1 other instance of incontinence several years ago. Patient reports that he was under a great deal of stress on his trip to [place]. Patient also reports that he has had severe respiratory condition and has been labeled various different diagnosis. While examining patient in the room his increased work of breathing is visible and use accessory muscles which the patient reports as baseline. Patient previously had been on multiple inhalers and was recommended to no longer use them if he was receiving no benefit, patient is not on any respiratory medications at this time. Patient demonstrates no deficit upon exam, and the patient's verbalizes that his speech and meditation are baseline. Patient's vital signs upon admit temp 98?, BP slightly hypertensive 168/83, HR 67, R 19, O2 saturation 98%. Patient's CBC, CMP and lab work was all unremarka ble, 1st troponin was within normal limits, patient had an NIH score: 2. I personally reviewed patient's EKG normal sinus rhythm with a ventricular rate of [address] or T-wave changes. Patient's brain CT demonstrated no acute intracranial processes. Patient's head neck CT demonstrated no intracranial large vessel occlusion, aneurysm or vascular malformation. It was positive for atherosclerotic plaque results in greater than 80 percent left proximal ICA stenosis. In addition was an incidental finding of a left lower lobe pulmonary embolism and associated left lower lobe consolidation. Patient admitted for neuro deficit rule out stroke and left lower lobe pulmonary embolism. Followup echo was comparable to previous with no concerning findings and followup MRI demonstrated a small R thalamic infarct. He continues to have mild L-sided paresthesiae and very slight motor difficulties on the L noted with PT. However his strength and sensation was good he was able to ambulate safely and speech and OT cleared him as well. He remained in stable condition, VSS on RA, by DoD and will f/u with outpt PCP. Status at Discharge Cognitive/behavioral status at discharge: at baseline, oriented Functional status at discharge: independent ambulation Overall status at discharge: patient is progressing back to baseline Exam Vital Signs (past 8 hours): - 06/03/21 06:41 06/03/21 08:47 Temperature 97.3 F L Pulse Rate 66 61 Respiratory Rate 16 16 Blood Pressure 187/68 H 152/80 H Pulse Oximetry 91 96 Oxygen Delivery Method Room Air Oxygen Flow Rate 0 Narrative Exam Narrative: cheerful trang sitting in chair by Const General: cooperative, healthy appearing, comfortable and well developed Eyes General: appearance normal, both eyes and all related structures Resp Effort & Inspection: normal respiratory effort and able to speak in complete sentences Auscultation: clear to auscultation bilaterally Cardio Rate: regular rate Rhythm: regular rhythm Heart Sounds: S1 normal and S2 normal GI Palpation: soft Auscultation: normal bowel sounds Skin General: no rashes or lesions noted Neuro General: patient alert, patient awake, patient oriented x3, tone normal and moves all extremities Cranial Nerves: CN's II-XI intact bilaterally Cognition: normal cognition Speech: speech normal, no expressive aphasia and no receptive aphasia Gait: normal gait Motor: muscle tone normal throughout and strength 5/5 throughout Sensory Exam: other (normal sensation except for mild low-grade tingling on entire L half ) DTR's: Rt Triceps: 2+, Lt Triceps: 2+, Rt Patellar: 2+ and Lt Patellar: 2+ Coordination: [id number] test normal, [id number] test normal and rapid alternating movement UE normal Psych Mental Status: mental status grossly normal Speech and Movement: speech and movement normal Mood: congruent mood Affect: normal affect Attitude: cooperative Thought Process: normal Thought Content: normal Judgment: judgment good Objective Labs Result Diagrams: 06/01/21 21:37 06/02/21 05:10 [facility] Medical History (Updated 06/02/21 @ 04:12 by ADITHYA Donato) Atrial fibrillation with controlled ventricular rate Restrictive airway disease Surgical History (Updated 06/02/21 @ 04:12 by ADITHYA Donato) H/O prostatectomy Family History (Updated 06/02/21 @ 04:13 by ADITHYA Donato) Mother Arthritis Father Leukemia Social History household members: spouse Smoking Status: Never smoker alcohol intake: current Discharge Assessment & Plan Assessment and Plan Assessment: Patient is a 75-year-old male with a history of atrial fibrillation, restrictive airway disease, prostate cancer in 1998 who who is admitted for left-sided neurological deficit with stroke rule out, and left lower lobe pulmonary embolism. #CVA thalamic new present on admission per MRI; still with persistent mild hemiparesthesiae and mild L sided clumsiness Echo comparable to previous EF 60-65% Physical therapy, strict fall precautions. Medications: lipitor 80mg tele stroke consult in the ED determined tPA not appropriate as symptoms were too mild. #Left lower lobe pulmonary embolism, acute vs chronic , present on admission Tele stroke consulted in ED regarding PE and had no recommendation requiring anticoagulation at this time. stable on RA; Eliquis for discharge as he also has hx of afib. #Atrial fibrillation with controlled rate, chronic, present on admission Continue patient's flecainide in setting of stroke and PE may be contributing factor will need anticoagulation #carotid stenosis 80% per scan will need outpt vascular f/u #COPD, chronic, present on admission stable, continue patient's Spiriva dispo: dc home to f/u with neuro, PT, pulm, cardio, and vascular Code status: DNR Surrogate decision maker: Josselyn Atkins-spouse COVID PCR: Negative COVID vaccination: Pfizer December 2020 Discharge Plan Discharge Plan Patient Disposition: Home Discharge orders & Medications Prescriptions: New atorvastatin [Lipitor] 20 mg Tablet 80 mg PO BEDTIME Qty: 30 RF: 0 Eliquis 5 mg tablet 5 mg PO BID Qty: 60 RF: 0 Continued aspirin 325 mg Tablet 325 mg PO DAILY RF: 0 sildenafil 25 mg Tablet See Rx Instructions .ROUTE .COMPLEX PRN (Reason: Sexual Activity) RF: 0 betamethasone valerate 0.1 % Cream 1 applic TOPICAL DAILY PRN (Reason: psoriasis) RF: 0 flecainide 50 mg Tablet 50 mg PO Q12H RF: 0 omeprazole 20 mg Capsule,Delayed Release(Dr/Ec) 20 mg PO BID RF: 0 azelastine 137 mcg (0.1 %) Aerosol,Coalgate 2 spray INTRANASAL BID RF: 0 fluticasone propionate 50 mcg/actuation Coalgate,Suspension 1 spray INTRANASAL DAILY RF: 0 levalbuterol tartrate [Xopenex HFA] 45 mcg/actuation Hfa Aerosol Inhaler 2 puff INHALATION Q4-6H PRN (Reason: Shortness Of Breath) RF: 0 ascorbic acid (vitamin C) 250 mg Tablet 250 mg PO DAILY RF: 0 vitamin B complex Tablet 1 tab PO DAILY RF: 0 furosemide 20 mg Tablet 20 mg PO DAILY RF: 0 multivitamin Tablet 1 tab PO DAILY RF: 0 calcium citrate 250 mg calcium Tablet 500 mg PO DAILY RF: 0 Discontinued tamsulosin 0.4 mg Capsule 0.4 mg PO DAILY RF: 0 Follow up/Referrals: Mateusz Sneed MD [Physician] - Diet/Activity/Treatments Diet: Diet as Tolerated Visit Report/Discharge Packet Instructions: DI for Stroke-Ischemic, How to Prevent Falls Discharge Data Attending Provider: Mateusz Sneed
--- NOTE | 2021-06-03 11:13 | CM.DPC ---
DCP: continued: case received, EMR reviewed and spoke with pt's PCP Dr. Sneed. He reports pt is stable for d/c today and will be seeing specialists as an outpt. Dr. Sneed will be following up on these referrals in his clinic. Checked in with pt. He is currently in process of working with RN to finalize the d/c process. His is at bedside. P: home today as per above.
--- NOTE | 2021-06-03 11:26 | CM.DANOTE ---
Patient discharged home. Escorted out by SIDE STITCHING MACHINE OPERATOR and spouse via wheelchair. Discharge instructions and education given to patient, along with new medication information. Paperwork explained to patient and spouse, denied any further questions. All belongings sent home with patient.
== END 2021-06-03 11:26 | disposition home or self-care (01) ==
LOC: ED 21:35 → AC 06-02 03:26
PROVIDERS: Admitting Provider Nurse Practitioner Family; Emergency Provider Emergency Medicine; Referring Provider Emergency Medicine; Visit Provider Family Medicine
DX: I63.89 Other cerebral infarction (principal); I26.99 Other pulmonary embolism without acute cor pulmonale; I48.20 Chronic atrial fibrillation, unspecified; K21.9 Gastro-esophageal reflux disease without esophagitis; R29.810 Facial weakness; R20.0 Anesthesia of skin; Z20.822 Contact with and (suspected) exposure to COVID-19; R29.702 NIHSS score 2; J44.9 Chronic obstructive pulmonary disease, unspecified; I65.22 Occlusion and stenosis of left carotid artery
CPT/HCPCS: 36415; 70450; 70496; 70498; 70548; 70553; 80048; 80053; 80061; 80305; 82550; 82553; 83880; 84443; 84484; 85025; 85610; 85730; 87635; 92526; 92610; 93005; 93010; 93306; 94760; 96360; 96361; 97162; 97165; 97535; 99285; C9803; G0378; Q3014; Q9967

== ENCOUNTER → 2023-01-07 10:59 | Outpatient (CLI) | payer MEDICARE, OTHER, SELFPAY ==
[2021-06-02 02:22] VITALS: BMI 29.3
--- NOTE | 2023-01-07 | DI.RAD.S_ITS ---
PROCEDURE: XR SHOULDER LT MIN 2V INDICATIONS: SHOULDER PAIN TECHNIQUE: 3 views of the shoulder were acquired. COMPARISON: [facility], CR, XR SHOULDER LT MIN 2V, 04/24/2019, 11:37. FINDINGS: Bones: Screw at the glenoid is unchanged. 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 No fractures or dislocations. No suspicious bony lesions. Visualized ribs appear intact. Soft tissues: No suspicious soft tissue calcifications. IMPRESSION: Moderate right shoulder DJD. Stable glenoid screw. MRI could be considered for further evaluation. Dictated by: Andrés Boyce M.D. on 01/07/2023 at 13:26 Approved by: Andrés Boyce M.D. on 01/07/2023 at 13:29
== END ==
PROVIDERS: Referring Provider Family Medicine; Visit Provider Family Medicine
DX: M19.011 Primary osteoarthritis, right shoulder (principal); M25.512 Pain in left shoulder
CPT/HCPCS: 73030

== ENCOUNTER 2023-04-24 08:24 | Emergency (ER) | payer MEDICARE, OTHER, SELFPAY ==
[2021-06-02 02:22] VITALS: BMI 29.3
[2023-04-24] VITALS (31 sets, daily range): BP systolic 146–229; BP diastolic 71–104; PULSE 60–75; RESP 11–35; TEMP 36.6; O2SAT 91–99; BMI 28.0
--- NOTE | 2023-04-24 08:36 | ED_ITS ---
HPI - Syncope General Chief Complaint: Syncope Stated Complaint: Dizzy,Eyes rolled back,LOC,incontinent, hx stroke Time Seen by Provider: 04/24/23 08:28 History of Present Illness HPI narrative: Patient 77-year-old male history of atrial fibrillation, CVA on Eliquis, hypertension hyperlipidemia presents today with near syncopal episode. He says for the last 6 months he is had increasing fatigue just not feeling well. He reports that over the last 1 week he is developed nocturnal urinary incontinence. Denies any painful frequent urination feels like he is not emptying his bladder well. No chest pain shortness breath palpitations. This morning she sat up on the edge of the bed got very dizzy lightheaded and fell backwards. He has residual left-sided numbness tingling in the left hand but no new symptoms today. He actually has an appointment with Dr. Sneed. No abdominal pain nausea or vomiting. No other symptoms at this time. Denies fever or chills. Related Data Home Medications Medication Instructions Recorded Confirmed ascorbic acid (vitamin C) 250 mg 250 mg PO DAILY 06/02/21 06/02/21 tablet aspirin 325 mg tablet 325 mg PO DAILY 06/02/21 06/02/21 azelastine 137 mcg (0.1 %) nasal 2 spray intranasal BID 06/02/21 06/02/21 spray aerosol betamethasone valerate 0.1 % 1 applic topical DAILY PRN 06/02/21 06/02/21 topical cream psoriasis calcium citrate 500 mg PO DAILY 06/02/21 06/02/21 flecainide 50 mg tablet 50 mg PO Q12H 06/02/21 06/02/21 fluticasone propionate 50 1 spray intranasal DAILY 06/02/21 06/02/21 mcg/actuation nasal spray,suspension furosemide 20 mg tablet 20 mg PO DAILY 06/02/21 06/02/21 levalbuterol tartrate 45 2 puff inhalation Q4-6H PRN 06/02/21 06/02/21 mcg/actuation aerosol inhaler Shortness Of Breath (Xopenex HFA) multivitamin 1 tab PO DAILY 06/02/21 06/02/21 omeprazole 20 mg capsule,delayed 20 mg PO BID 06/02/21 06/02/21 release sildenafil 25 mg tablet See Rx Instructions .Route 06/02/21 06/02/21 .COMPLEX PRN Sexual Activity vitamin B complex 1 tab PO DAILY 06/02/21 06/02/21 Previous Rx's Medication Instructions Recorded apixaban 5 mg tablet (Eliquis) 5 mg PO BID #60 tabs 06/03/21 atorvastatin 20 mg tablet (Lipitor) 80 mg PO BEDTIME #30 tabs 06/03/21 Allergies Allergy/AdvReac Type Severity Reaction Status Date / Time No Known Drug Allergies Allergy Verified 04/24/23 08:54 Review of Systems Review of Systems ROS Unobtainable: All systems reviewed & are unremarkable except as noted in HPI and below Patient History Medical History Atrial fibrillation with controlled ventricular rate Restrictive airway disease Surgical History H/O prostatectomy Family History Mother Arthritis Father Leukemia Social History household members: spouse Smoking Status: Never smoker alcohol intake: current Smoking Status: Never smoker alcohol intake frequency: 0-2 drinks per day Substance Use Type: does not use Exam Initial Vital Signs Initial Vital Signs: Vital Signs Pulse Rate 71 04/24/23 08:31 Respiratory Rate 31 H 04/24/23 08:31 Pulse Oximetry 91 04/24/23 08:31 GENERAL: Alert well-appearing 77-year-old male and in no acute distress. HEENT: Head atraumatic,EOMI, pupils reactive, face symmetric, moist mucous membranes CARDIOVASCULAR: Regular rate and rhythm without murmurs, rubs or gallops. RESPIRATORY: Breath sounds equal bilaterally, no wheezes rales or rhonchi. ABDOMEN: Soft, nontender. Normoactive bowel sounds all 4 quadrants. No guarding or rebound. EXTREMITIES: Normal range of motion, no clubbing or edema. Neurovascularly intact NEUROLOGICAL: Alert and oriented x4.Normal gait and speech. Cranial nerves II through XII grossly intact. Good [id number], good [id number], strength equal bilaterally, no dysarthria or aphasia, sensation in tact to soft touch bilaterally, no visual changes, no facial droop SKIN: Warm, dry, no laceration, no petechiae, no rashes or lesions. Scores NIH Stroke Scale Level of Conciousness: Alert, keenly responsive Ask month/age: Answers both questions correctly. Open/close eyes, close hand: Performs both tasks correctly Best gaze horizontal: Normal Visual marquez: No visual loss Facial palsy: Normal symetrical movement Left arm drift: No drift for full 10 sec Right arm drift: No drift for full 10 sec Left leg drift: No drift for full 5 sec Right leg drift: No drift for full 5 sec Limb ataxia: Absent Sensory on face/arms/legs: Normal, no sensory loss Best language: No aphasia, normal Dysarthria: Normal Extinction or inattention: No abnormality Total NIH Stroke scale score: 0 Course Orders Ordered: ED Orders 04/24/23 08:40 CT head/brain wo con Stat XR chest 1V Stat Complete Blood Count AUTO DIFF Stat Comprehensive Metabolic Panel Stat Lipase Stat NT-proBNP (BNP-Adult 18+) Stat Procalcitonin Stat Troponin & CK Cardiac Panel Stat EKG-12 Lead Stat Sodium Chloride (Normal Saline 0.9%) 1,000 mls @ 150 mls/hr IV CONT [place] Last Infusion: 04/24/23 12:29 Dose: 0 mls/hr Documented By: Admin: 04/24/23 09:06 Dose: 150 mls/hr Documented By: CARLOS Discontinued Medications Atropine Sulfate (Atropine 1 Mg/10 Ml Syringe) 0.5 mg IV NOW ONE Stop: 04/24/23 12:25 Last Admin: 04/24/23 12:29 Dose: 0.5 mg Documented By: CARLOS Vital Signs Vital signs: Vital Signs - 8 hr 04/24/23 08:46 04/24/23 08:31 04/24/23 08:32 Temperature 98 F Pulse Rate 67 71 70 Respiratory Rate 20 31 H 21 Blood Pressure 200/90 H Pulse Oximetry 94 91 92 Oxygen Delivery Method Room Air 04/24/23 08:32 04/24/23 09:00 04/24/23 09:25 Temperature Pulse Rate 62 Respiratory Rate 18 Blood Pressure 200/90 H 162/71 H Pulse Oximetry 96 Oxygen Delivery Method 04/24/23 09:25 04/24/23 09:30 04/24/23 09:30 Temperature Pulse Rate 66 60 Respiratory Rate 20 12 Blood Pressure 151/73 H Pulse Oximetry 96 95 Oxygen Delivery Method Room Air 04/24/23 10:00 04/24/23 10:01 04/24/23 10:01 Temperature Pulse Rate 70 68 Respiratory Rate 25 H 26 H Blood Pressure 229/104 H Pulse Oximetry 95 95 Oxygen Delivery Method 04/24/23 10:11 04/24/23 10:11 04/24/23 10:30 Temperature Pulse Rate 65 Respiratory Rate 25 H Blood Pressure 183/79 H 156/72 H Pulse Oximetry 95 Oxygen Delivery Method 04/24/23 10:30 04/24/23 11:00 04/24/23 11:00 Temperature Pulse Rate 61 61 Respiratory Rate 19 13 Blood Pressure 154/74 H Pulse Oximetry 96 97 Oxygen Delivery Method 04/24/23 11:30 04/24/23 11:30 04/24/23 12:00 Temperature Pulse Rate 68 Respiratory Rate 17 Blood Pressure 176/83 H 203/94 H Pulse Oximetry 95 Oxygen Delivery Method 04/24/23 12:00 04/24/23 12:11 04/24/23 12:11 Temperature Pulse Rate 73 61 Respiratory Rate 27 H 13 Blood Pressure 150/77 H Pulse Oximetry 98 99 Oxygen Delivery Method 04/24/23 12:20 04/24/23 12:20 04/24/23 12:30 Temperature Pulse Rate 75 Respiratory Rate 18 Blood Pressure 156/88 H 153/76 H Pulse Oximetry 94 Oxygen Delivery Method 04/24/23 12:30 04/24/23 12:40 04/24/23 12:40 Temperature Pulse Rate 68 69 Respiratory Rate 16 15 Blood Pressure 154/82 H Pulse Oximetry 94 96 Oxygen Delivery Method 04/24/23 12:50 04/24/23 12:50 04/24/23 13:00 Temperature Pulse Rate 69 Respiratory Rate 12 Blood Pressure 147/81 H 146/76 H Pulse Oximetry 95 Oxygen Delivery Method 04/24/23 13:00 04/24/23 13:10 04/24/23 13:10 Temperature Pulse Rate 71 72 Respiratory Rate 11 L 22 Blood Pressure 176/81 H Pulse Oximetry 94 94 Oxygen Delivery Method 04/24/23 13:20 04/24/23 13:20 04/24/23 13:30 Temperature Pulse Rate 73 Respiratory Rate 22 Blood Pressure 176/85 H 164/80 H Pulse Oximetry 96 Oxygen Delivery Method 04/24/23 13:30 04/24/23 13:40 04/24/23 13:40 Temperature Pulse Rate 72 70 Respiratory Rate 17 14 Blood Pressure 153/72 H Pulse Oximetry 95 95 Oxygen Delivery Method 04/24/23 13:45 04/24/23 13:50 04/24/23 13:50 Temperature Pulse Rate 68 72 Respiratory Rate 12 16 Blood Pressure 156/77 H Pulse Oximetry 95 95 Oxygen Delivery Method 04/24/23 14:00 04/24/23 14:00 04/24/23 14:10 Temperature Pulse Rate 68 70 Respiratory Rate 14 18 Blood Pressure 149/81 H Pulse Oximetry 95 94 Oxygen Delivery Method Room Air 04/24/23 14:10 04/24/23 14:15 04/24/23 14:20 Temperature Pulse Rate 67 Respiratory Rate 21 Blood Pressure 150/84 H 150/83 H Pulse Oximetry 93 Oxygen Delivery Method 04/24/23 14:20 04/24/23 14:30 04/24/23 14:30 Temperature Pulse Rate 69 73 Respiratory Rate 14 23 Blood Pressure 191/86 H Pulse Oximetry 96 93 Oxygen Delivery Method 04/24/23 14:45 Temperature Pulse Rate 73 Respiratory Rate 35 H Blood Pressure Pulse Oximetry Oxygen Delivery Method MDM - Syncope Lab Data 04/24/23 08:40 04/24/23 08:40 Labs: Lab Results 04/24/23 04/24/23 04/24/23 Range/Units 08:40 08:40 08:40 WBC 5.2 (4.5-11.0) X10^3/uL RBC 4.51 (4.5-5.9) X10^6/uL Hgb 14.6 (13.5-17.5) g/dL Hct 43.4 (41-53) % MCV 96.3 (80-100) fL MCH 32.4 (26-34) PG MCHC 33.6 (30-36) % RDW 13.8 (11.6-14.8) % Plt Count 170 (150-400) X10^3/uL Neut % (Auto) 58.0 (50-75) % Lymph % (Auto) 28.2 (25-40) % [place] % (Auto) 11.2 (3-14) % Eos % (Auto) 2.1 (2-4) % Baso % (Auto) 0.5 (0-2) % Neut # (Auto) 3000 (1844-3025) /uL Lymph # (Auto) 1500 (8542-9522) /uL [place] # (Auto) 600 (0-900) /uL Eos # (Auto) 100 (0-450) /uL Baso # (Auto) 0 (0-100) /uL Sodium 139 (137-145) mmol/L Potassium 3.5 (3.4-5.1) mmol/L Chloride 99 (98-107) mmol/L Carbon Dioxide 36 H (22-32) mmol/L BUN 15 (9-20) mg/dL Creatinine 0.69 (0.66-1.25) mg/dL Estimated GFR > 60 (>60) mL/min BUN/Creatinine Ratio 21.7 (6-22) Glucose 105 (80-110) mg/dL Calcium 9.0 (8.4-10.2) mg/dL Total Bilirubin 0.9 (0.2-1.3) mg/dL AST 34 (17-59) IU/L ALT 28 (<50) IU/L Alkaline Phosphatase 67 (38-126) U/L Total Creatine Kinase 67 (55-170) U/L Troponin I < 0.012 (0.01-0.034) ng/mL NT-Pro-B Natriuret Pep 90 (<450) pg/mL Total Protein 7.0 (6.3-8.2) g/dL Albumin 4.2 (3.5-5.0) g/dL Globulin 2.8 (1.7-4.1) g/dL Albumin/Globulin Ratio 1.5 (1.0-2.8) Lipase 68 (23-300) U/L Procalcitonin 0.05 (<0.5) ng/mL Point of Care Testing Glucose POC 104 Urine Dip Bedside Urine Glucose Negative Bedside Urine Bilirubin - Negative Bedside Urine Ketone - Negative Urine Specific [place] 1.015 Bedside Urine Occult Blood - Negative Bedside Urine pH 6.0 Bedside Urine Protein - Negative Bedside Urine Urobilinogen +/- 1mg Bedside Urine Nitrite - Negative Bedside Urine Leukocytes - Negative Esterase Imaging Data CT scan - head: Radiologist's Impression: PROCEDURE:? CT HEAD/BRAIN WO CON ? INDICATIONS:? syncope on eliquis ? TECHNIQUE:? Noncontrast 4.5 mm thick angled axial sections acquired from the foramen magnum to the vertex, with coronal and sagittal reformats.? For radiation dose reduction, the following was used:? automated exposure control, adjustment of mA and/or kV according to patient size.? ? COMPARISON:? None. ? FINDINGS:? Image quality:? Excellent.? ? CSF spaces:? Basal cisterns are patent.? No extra-axial fluid collections.? The ventricles are symmetric in size and shape.? ? Brain:? No intracranial bleeds or masses.? There is cerebral volume loss for age, with resultant ventricular and sulcal prominence.? There are periventricular and deep white matter chronic small vessel ischemic changes.? There is intracranial internal carotid artery atherosclerosis.? ? Skull and face:? Calvarium and visualized facial bones appear intact, without suspicious lesions.? ? Sinuses:? Visualized sinuses and mastoids are clear.? There is Ling fluid in the maxillary sinuses likely mucous. ? IMPRESSION:? 1. No acute intracranial abnormality. 2. Cerebral volume loss and small vessel ischemic changes.? Dictated by: Rome Ba M.D. on 04/24/2023 at 8:11 ? ? Chest x-ray: Radiologist's Impression: PROCEDURE:? XR CHEST 1V ? INDICATIONS:? chest pain ? TECHNIQUE:? One view of the chest was acquired.? ? COMPARISON:? [facility], , XR CHEST 2V, 11/25/2018, 12:32. ? FINDINGS:? ? Surgical changes and devices:? None.? ? Lungs and pleura:? Left basilar atelectasis with elevation left hemidiaphragm versus is hiatal hernia.? The appearance is unchanged compared to the prior study. ? Mediastinum:? Mediastinal contours appear normal.? Heart size is normal.? The aorta is tortuous. ? Bones and chest wall:? No suspicious bony lesions.? Overlying soft tissues appear unremarkable.? ? IMPRESSION:? Stable chest x-ray.? No acute abnormality. ? ? Dictated by: Rome Ba M.D. on 04/24/2023 at 8:02 ? ECG Data Interpretation: Sinus rhythm rate 66 MA interval 144 QRS [address] changes similar to previous EKGs in [facility] Narrative Medical decision making narrative: Patient 77-year-old male presents today with near syncopal episode. Happened when he sat up got out of bed. He is a negative NIH stroke scale head CT is also negative. Blood work is reassuring without any evidence of leukocytosis anemia electrolyte abnormality STEPHANIE or elevated troponin. Initial blood pressure was quite elevated however it has come down without any sort of intervention. Overall no evidence of infection POC urine was negative bladder scanned and show any excessive retention. He was given a small amount of IV fluids overall feeling better. Patient suddenly has low heart rate into the 26 he feels dizzy and lightheaded at this time. Next he actually radius to asystole briefly heart rate returns before CPR has been started. Patient is not on any AV ami blocking agents. Dr. Null consulted regards to patient's bradycardia on flecainide recommends transferring for pacemaker placement. Patient not wanting to go to [facility] is contacted. Dr. Mcdowell, cardiology updated on patient's symptoms test results agrees patient should be transferred he actually has a establish care with Cardiology at [facility] Dr. Peralta, hospitalist at [facility] updated patient's symptoms test results agrees with transfer. 11:30Patient had a 30 second pause where he was unresponsive again woke up prior to CPR being started. He is given 0.5 mg of atropine. Patient having recurrent episodes of bradycardia and asystole. I suspect the sick sinus syndrome I do not see any evidence of an AV ami block. Not on any AV ami blocking agents. I suspect that this is what has been causing his fatigue for the last 6 months. He had 1 syncopal episode 2 years ago but nothing until today. Critical Care Time Critical Care Time Critical Care Time: Yes Total Critical Care Time: 45 Attestation: The high probability of a clinically significant, sudden or life threatening deterioration of the [cardiovascular] system(s) required my full and direct attention, intervention and personal management. The aggregate critical care time was [45] minutes. This time is in addition to time spent performing reported procedures but includes the following: [x] Data Review and interpretation [x] Patient assessment and monitoring of vital signs [x] Documentation [x] Medication orders and management Discharge Plan Departure Patient Disposition: [facility] Clinical Impression: Syncope, Bradycardia Prescriptions: No Action aspirin 325 mg Tablet 325 mg PO DAILY sildenafil 25 mg Tablet See Rx Instructions .ROUTE .COMPLEX PRN (Reason: Sexual Activity) Rx Instructions: 20 mg 2-5 tablets 1 hour prior to sexual activity betamethasone valerate 0.1 % Cream 1 applic TOPICAL DAILY PRN (Reason: psoriasis) flecainide 50 mg Tablet 50 mg PO Q12H omeprazole 20 mg Capsule,Delayed Release(Dr/Ec) 20 mg PO BID azelastine 137 mcg (0.1 %) Aerosol,Bishop 2 spray INTRANASAL BID fluticasone propionate 50 mcg/actuation Bishop,Suspension 1 spray INTRANASAL DAILY levalbuterol tartrate [Xopenex HFA] 45 mcg/actuation Hfa Aerosol Inhaler 2 puff INHALATION Q4-6H PRN (Reason: Shortness Of Breath) ascorbic acid (vitamin C) 250 mg Tablet 250 mg PO DAILY vitamin B complex Tablet 1 tab PO DAILY furosemide 20 mg Tablet 20 mg PO DAILY multivitamin Tablet 1 tab PO DAILY calcium citrate 250 mg calcium Tablet 500 mg PO DAILY atorvastatin [Lipitor] 20 mg Tablet 80 mg PO BEDTIME Qty: 30 0RF Eliquis 5 mg tablet 5 mg PO BID Qty: 60 0RF
--- NOTE | 2023-04-24 08:40 | DI.RAD.S_ITS ---
PROCEDURE: XR CHEST 1V INDICATIONS: chest pain TECHNIQUE: One view of the chest was acquired. COMPARISON: [facility], CR, XR CHEST 2V, 11/25/2018, 12:32. FINDINGS: Surgical changes and devices: None. Lungs and pleura: Left basilar atelectasis with elevation left hemidiaphragm versus is hiatal hernia. The appearance is unchanged compared to the prior study. Mediastinum: Mediastinal contours appear normal. Heart size is normal. The aorta is tortuous. Bones and chest wall: No suspicious bony lesions. Overlying soft tissues appear unremarkable. IMPRESSION: Stable chest x-ray. No acute abnormality. Dictated by: Rome Ba M.D. on 04/24/2023 at 8:02 Approved by: Rome Ba M.D. on 04/24/2023 at 8:04
--- NOTE | 2023-04-24 08:40 | DI.CT.S_ITS ---
PROCEDURE: CT HEAD/BRAIN WO CON INDICATIONS: syncope on eliquis TECHNIQUE: Noncontrast 4.5 mm thick angled axial sections acquired from the foramen magnum to the vertex, with coronal and sagittal reformats. For radiation dose reduction, the following was used: automated exposure control, adjustment of mA and/or kV according to patient size. COMPARISON: None. FINDINGS: Image quality: Excellent. CSF spaces: Basal cisterns are patent. No extra-axial fluid collections. The ventricles are symmetric in size and shape. Brain: No intracranial bleeds or masses. There is cerebral volume loss for age, with resultant ventricular and sulcal prominence. There are periventricular and deep white matter chronic small vessel ischemic changes. There is intracranial internal carotid artery atherosclerosis. Skull and face: Calvarium and visualized facial bones appear intact, without suspicious lesions. Sinuses: Visualized sinuses and mastoids are clear. There is Ling fluid in the maxillary sinuses likely mucous. IMPRESSION: 1. No acute intracranial abnormality. 2. Cerebral volume loss and small vessel ischemic changes. Dictated by: Rome Ba M.D. on 04/24/2023 at 8:11 Approved by: Rome Ba M.D. on 04/24/2023 at 8:14
[2023-04-24 08:49] LABS: Add Manual Diff / Slide Review NO; Basophils Absolute Auto 0 /uL (0-100); Basophils Percent Auto 0.5 % (0-2); Eosinophils Absolute Auto 100 /uL (0-450); Eosinophils Percent Auto 2.1 % (2-4); Hematocrit 43.4 % (41-53); Hemoglobin 14.6 g/dL (13.5-17.5); Lymphocytes Absolute Auto 1500 /uL (1100-4500); Lymphocytes Percent Auto 28.2 % (25-40); Mean Corpuscular HGB Conc 33.6 % (30-36); Mean Corpuscular Hemoglobin 32.4 PG (26-34); Mean Corpuscular Volume 96.3 fL (80-100); Monocytes Absolute Auto 600 /uL (0-900); Monocytes Percent Auto 11.2 % (3-14); Neutrophils Absolute Auto 3000 /uL (1500-7000); Platelet Count 170 X10^3/uL (150-400); Red Blood Cell Count 4.51 X10^6/uL (4.5-5.9); Red Cell Distribution Width 13.8 % (11.6-14.8); White Blood Cell Count 5.2 X10^3/uL (4.5-11.0)
[2023-04-24 09:04] LABS: Alanine Aminotransferase 28 IU/L (<50); Albumin 4.2 g/dL (3.5-5.0); Albumin Globulin Ratio 1.5 (1.0-2.8); Alkaline Phosphatase 67 U/L (38-126); Aspartate Aminotransferase 34 IU/L (17-59); BUN Creatinine Ratio 21.7 (6-22); Bilirubin Total 0.9 mg/dL (0.2-1.3); Blood Urea Nitrogen 15 mg/dL (9-20); Carbon Dioxide 36 mmol/L (22-32); Chloride 99 mmol/L (98-107); Creatine Kinase 67 U/L (55-170); Estimated Glomerular Filt Rate > 60 mL/min (>60); Globulin 2.8 g/dL (1.7-4.1); Glucose 105 mg/dL (80-110); HEMOLYSIS < 15 (0-50); Lipase 68 U/L (23-300); Potassium 3.5 mmol/L (3.4-5.1); Sodium 139 mmol/L (137-145)
[2023-04-24] MEDS: SODIUM CHLORIDE 0.9% 1,000 ML 150 ML IV (09:06)
[2023-04-24 09:12] LABS: NT-proBNP (BNP-Adult 18+) 90 pg/mL (<450)
[2023-04-24 09:16] LABS: Troponin I < 0.012 ng/mL (0.01-0.034)
[2023-04-24 09:20] LABS: Procalcitonin 0.05 ng/mL (<0.5)
--- NOTE | 2023-04-24 10:03 | PC.NURSE ---
Addendum entered by Olive Ortiz CNA 04/24/23 10:09: 20G placed in left hand. Original Note: Pt bradied down to cadiac pause. No loss of consciousness. Bp stable. Crash cart at bedside. Defibrilator pads on pt. Dr William at bedside.
--- NOTE | 2023-04-24 10:11 | PC.NURSE ---
Spoke with Steve at [facility]. Transfer center requested images and face sheet which this PRODUCTION CONSULTANT has faxed @[phone] to [phone] Transfer center will page cardiology to speak with Dr. William
--- NOTE | 2023-04-24 11:56 | PC.NURSE ---
Pt HR bradied down to 25. Pt stated that he felt a little bit dizzy. No loss of consciousness. BP stable and crash cart at bedside.
--- NOTE | 2023-04-24 12:03 | PC.NURSE ---
Addendum entered by Olive Ortiz CNA 04/24/23 12:20: Pt bradied down to a cardiac pause. No loss of consciousness. RN, welfare centre manager and Dr William at bedside. Verbal order for 0.5mg of Atropine given and administered. Original Note: Pt bradied down to HR of 10 for 20 seconds. Pt stated that he felt dizzy. No loss of consciousness. RN and chart computer at bedside.
[2023-04-24] MEDS: ATROPINE 1 MG/10 ML SYRINGE 0.5 MG IV (12:29)
== END 2023-04-24 14:50 | disposition short-term general hospital (02) ==
PROVIDERS: Emergency Provider Emergency Medicine
DX: R55 Syncope and collapse (principal); R00.1 Bradycardia, unspecified; R20.0 Anesthesia of skin; R07.9 Chest pain, unspecified; Z79.899 Other long term (current) drug therapy; Z79.01 Long term (current) use of anticoagulants
CPT/HCPCS: 36415; 51798; 70450; 71045; 80053; 81003; 82550; 82962; 83690; 83880; 84145; 84484; 85025; 93005; 93010; 96361; 96374; 99284; 99285; 99291; J0461

== ENCOUNTER → 2023-06-17 08:09 | Outpatient (CLI) | payer MEDICARE, OTHER, SELFPAY ==
[2021-06-02 02:22] VITALS: BMI 29.3
== END ==
PROVIDERS: PCP Family Medicine; Referring Provider Family Medicine; Visit Provider Family Medicine
DX: R05.3 Chronic cough (principal); J44.9 Chronic obstructive pulmonary disease, unspecified
CPT/HCPCS: 94010; 94726; 94729

== ENCOUNTER 2023-07-19 10:15 | Outpatient (RCR) | payer MEDICARE, OTHER, SELFPAY ==
[2021-06-02 02:22] VITALS: BMI 29.3
== END 2023-07-19 12:15 ==
LOC: PUL 10:15
PROVIDERS: PCP Family Medicine; Referring Provider Family Medicine; Visit Provider Family Medicine
DX: J44.9 Chronic obstructive pulmonary disease, unspecified (principal)
CPT/HCPCS: 94625

== ENCOUNTER → 2025-03-16 08:36 | Outpatient (CLI) | payer MEDICARE, OTHER, SELFPAY ==
[2021-06-02 02:22] VITALS: BMI 29.3
--- NOTE | 2025-03-16 08:41 | DI.RAD.S_ITS ---
PROCEDURE: XR HIP W PEL IF DONE LT 2V INDICATIONS: PAIN IN LEFT HIP TECHNIQUE: AP pelvis with lateral view(s) of the left hip(s). COMPARISON: CT, CHEST/ABD/PEL WITH CONTRAST, 04/17/2016, 9:45. FINDINGS: Bones: No fractures or dislocations. Pelvic ring appears intact. No suspicious bony lesions. Moderate symmetric axial hip joint space narrowing with periarticular osteophyte formation. Degenerative disc and facet disease involves the inferior lumbar spine. Soft tissues: The visualized bowel gas pattern is normal. No suspicious soft tissue calcifications. Chondrocalcinosis. Scattered pelvic surgical clips. IMPRESSION: 1. Moderate symmetric hip joint degeneration. 2. Chondrocalcinosis. Differential diagnosis includes but is not limited to hemochromatosis, hyperparathyroidism and CPPD. Dictated by: Blaze MATT Interpreted: Emily Porter MD on 03/17/2025 at 12:26 Transcribed by: VINICIUS on 03/17/2025 at 12:27 Approved by: Emily Porter M.D. on 03/19/2025 at 7:43
== END ==
PROVIDERS: PCP Family Medicine; Referring Provider Family Medicine; Visit Provider Family Medicine
DX: M25.552 Pain in left hip (principal); M11.252 Other chondrocalcinosis, left hip
CPT/HCPCS: 73502